=== PATIENT | male | born 1940 | race Caucasian/White ===

== ENCOUNTER 2017-09-15 10:52 | Inpatient (IN) | payer OTHER, MEDICARE ==
[2017-09-15] VITALS (8 sets, daily range): BP systolic 117–178; BP diastolic 63–76; PULSE 71–85; RESP 16–20; TEMP 97.1–98.8; O2SAT 96–98
[~2017-09-15] VITALS: Ht 170.2 cm; Wt 56.5 kg
[2017-09-15] MEDS ORDERED: SODIUM CHLORIDE 0.9% FLUSH 10 ML FLUSH IVF PRN (11:30)
--- NOTE | 2017-09-15 11:36 | PD ---
HPI Chief Complaint: Altered Mental Status Time Seen by Provider: 11:12 Travel History International Travel<30 days: No Contact w/Intl Traveler<30days: No Traveled to known affect area: No History of Present Illness HPI 76 year old male presents to the emergency department with his daughter at bedside. Patient has history of throat cancer, oncologist is Dr. Rehman. He started immunotherapy recently, last time was 1 week ago. According to daughter and patient, he has been having a right-sided headache behind the right eye for 2 days, waking up with a headache. He states he has no headache at this time. His daughter states that starting yesterday, he has been having difficulty getting his words out. He will know he wants to stay, but cannot say. The patient reports history of TIA, recent TAVR repair 2 months ago. Daughter states that he also been having syncopal episodes for approximately 7- 8 months and they contributed to his aortic valve. However, he still is having syncopal episodes since his repair. His daughter states his Lasix was upset was approximately 2 weeks ago. The patient denies any chest pain or shortness of breath. He does have a feeding tube. His daughter is also concerned that he could have pneumonia as he has been coughing. She states that he did eat tapioca pudding 2 days ago, which he is not supposed to do due to aspiration. No fevers. The patient denies any abdominal pain. No nausea, vomiting, diarrhea. The patient's speech is somewhat garbled due to history of throat cancer. According to patient and his daughter, this is his baseline. Patient states he has had these headaches before. He states that he is currently on Plavix and aspirin as well as Percocet as needed for pain, but rarely takes the Percocet. No exacerbating or alleviating factors. Moderate severity. PFSH Past Medical History Hx Anticoagulant Therapy: Yes (PLAVIX) Social History Alcohol Use: No Tobacco Use: No Substance Use: No Allergies-Medications (Allergen,Severity, Reaction): Coded Allergies: fludrocortisone (Verified Allergy, Severe, Swelling, 09/05/17) swollen tongue Reported Meds & Prescriptions Reported Meds & Active Scripts Active Reported Aspirin Adult Low Strength (Aspirin) 81 Mg Tabdr 81 Mg PO DAILY Plavix (Clopidogrel Bisulfate) 75 Mg Tab 75 Mg PO DAILY Review of Systems Except as stated in HPI: all other systems reviewed are Neg Physical Exam Narrative GENERAL: Well-nourished, well-developed male patient, afebrile. SKIN: Focused skin assessment warm/dry. HEAD: Normocephalic. Atraumatic. ENT: Mucosa pink and moist. No erythema or exudates. No uvular edema. No uvular , palatal, or tonsillar deviation. Airway patent. Nasal turbinates appear normal without nasal blood, purulent drainage or septal hematoma. Bilateral tympanic membranes are clear without erythema or perforation. EYES: No scleral icterus. No injection or drainage. PERRLA. EOM intact. NECK: Supple, trachea midline. No JVD or lymphadenopathy. CARDIOVASCULAR: Regular rate and rhythm without murmurs, gallops, or rubs. RESPIRATORY: Breath sounds equal bilaterally. No accessory muscle use. Lungs sounds are clear to auscultation GASTROINTESTINAL: Abdomen soft, non-tender, nondistended. Feeding tube noted. MUSCULOSKELETAL: No cyanosis, or edema. Bilateral upper and lower extremity strength 5/5. All extremities are neurovascularly intact. BACK: Nontender without obvious deformity. No CVA tenderness. NEUROLOGICAL: Awake and alert. Cranial nerves II through XII intact. Motor and sensory grossly within normal limits. Five out of 5 muscle strength in all muscle groups. Normal speech. Finger to nose is normal bilaterally, the patient did have trouble following the instructions. [id number] is normal bilaterally. Data Data Last Documented VS Vital Signs Date Time Temp Pulse Resp B/P (MAP) Pulse Ox O2 Delivery O2 Flow Rate FiO2 09/15/17 13:22 77 18 149/71 (97) 97 Room Air 09/15/17 10:56 98.8 Orders Orders Electrocardiogram (09/15/17 11:26) Prothrombin Time / Inr (Pt) (09/15/17 11:26) Act Partial Throm Time (Ptt) (09/15/17 11:26) Complete Blood Count With Diff (09/15/17 11:26) Comprehensive Metabolic Panel (09/15/17 11:26) Creatine Kinase (Cpk) (09/15/17 11:26) Troponin I (09/15/17 11:26) Urinalysis - C+S If Indicated (09/15/17 11:26) Ct Brain W/O Iv Contrast(Rout) (09/15/17 11:26) Chest, Single Ap (09/15/17 11:26) Ecg Monitoring (09/15/17 11:26) Iv Access Insert/Monitor (09/15/17 11:26) Oximetry (09/15/17 11:26) Sodium Chloride 0.9% Flush (Ns Flush) (09/15/17 11:30) Magnesium (Mg) (09/15/17 11:26) Admit Order (Ed Use Only) (09/15/17 13:34) Labs Laboratory Tests Test 09/15/17 11:30 09/15/17 11:45 White Blood Count 8.7 TH/MM3 Red Blood Count 4.32 MIL/MM3 Hemoglobin 13.0 GM/DL Hematocrit 38.2 % Mean Corpuscular Volume 88.4 FL Mean Corpuscular Hemoglobin 30.1 PG Mean Corpuscular Hemoglobin Concent 34.0 % Red Cell Distribution Width 15.8 % Platelet Count 194 TH/MM3 Mean Platelet Volume 7.4 FL Neutrophils (%) (Auto) 85.9 % Lymphocytes (%) (Auto) 7.2 % Monocytes (%) (Auto) 6.0 % Eosinophils (%) (Auto) 0.6 % Basophils (%) (Auto) 0.3 % Neutrophils # (Auto) 7.4 TH/MM3 Lymphocytes # (Auto) 0.6 TH/MM3 Monocytes # (Auto) 0.5 TH/MM3 Eosinophils # (Auto) 0.1 TH/MM3 Basophils # (Auto) 0.0 TH/MM3 CBC Comment DIFF FINAL Differential Comment Prothrombin Time 11.0 SEC Prothromb Time International Ratio 1.1 RATIO Activated Partial Thromboplast Time 28.2 SEC Blood Urea Nitrogen 11 MG/DL Creatinine 0.89 MG/DL Random Glucose 140 MG/DL Total Protein 7.0 GM/DL Albumin 3.6 GM/DL Calcium Level 8.5 MG/DL Magnesium Level 1.8 MG/DL Alkaline Phosphatase 57 U/L Aspartate Amino Transf (AST/SGOT) 15 U/L Alanine Aminotransferase (ALT/SGPT) 14 U/L Total Bilirubin 0.5 MG/DL Sodium Level 137 MEQ/L Potassium Level 3.8 MEQ/L Chloride Level 100 MEQ/L Carbon Dioxide Level 31.0 MEQ/L Anion Gap 6 MEQ/L Estimat Glomerular Filtration Rate 83 ML/MIN Total Creatine Kinase 44 U/L Troponin I 0.03 NG/ML Urine Color YELLOW Urine Turbidity CLEAR Urine pH 7.0 Urine Specific [place] 1.016 Urine Protein NEG mg/dL Urine Glucose (UA) NEG mg/dL Urine Ketones NEG mg/dL Urine Occult Blood NEG Urine Nitrite NEG Urine Bilirubin NEG Urine Urobilinogen 2.0 MG/DL Urine Leukocyte Esterase NEG Urine RBC LESS THAN 1 /hpf Urine WBC 1 /hpf Urine Mucus FEW /lpf Microscopic Urinalysis Comment CULT NOT INDICATED MDM Medical Decision Making Medical Screen Exam Complete: Yes Emergency Medical Condition: Yes Medical Record Reviewed: Yes Interpretation(s) Last Impressions Head CT 09/15/17 1126 Signed Impressions: Service Date/Time: Friday, September 15, 2017 11:59 - CONCLUSION: Suspected subdural hygroma on the right side of the frontal region. No acute process is identified. Toribio Enamorado MD Chest X-Ray 09/15/176 Signed Impressions: Service Date/Time: Friday, September 15, 2017 12:11 - CONCLUSION: Normal examination. Left subclavian bipolar pacer Toribio Enamorado MD Differential Diagnosis CVA versus TIA versus electrolyte abnormality versus dehydration versus pneumonia Narrative Course 76-year-old male presents to the emergency department for difficulty getting his words out since yesterday as well as a right-sided headache for 2 days. EKG , CBC, CMP, CK, troponin, magnesium, PTT, PT/INR, UA are ordered and pending. Chest x-ray and CT of the brain are ordered and pending. EKG shows v-paced rhythm, HR 78. CBC shows no acute abnormalities. CMP shows no acute abnormality. CK is 44. Troponin is 0.03. Magnesium is 1.8. Coags are unremarkable. UA is negative for acute infection. Chest x-ray shows no acute abnormality. CT of the brain shows suspected subdural hygroma on the right side of the frontal region. No acute process is identified. I spoke with Dr. Landeros regarding patient. He recommends admission and consult to him. Patient will be admitted for further evaluation. [facility] is paged for admission. Dr. Mcmillan accepted admission. Diagnosis Primary Impression: Subdural hygroma Additional Impressions: Headache Qualified Codes: R51 - Headache Difficulty with speech Admitting Information Admitting Physician Requests: Observation Vesna Walter Sep 15, 2017 11:36
[2017-09-15 11:53] LABS: AUTOMATED NEUTROPHIL # 7.4 TH/MM3 (1.8-7.7); BASOPHIL % 0.3 % (0.0-2.0); EOSINOPHIL # 0.1 TH/MM3 (0-0.4); EOSINOPHIL % 0.6 % (0.0-4.0); HEMATOCRIT 38.2 % (39.0-51.0); LYMPH % 7.2 % (9.0-44.0); LYMPHOCYTE # 0.6 TH/MM3 (1.0-4.8); MEAN CELL VOLUME 88.4 FL (80.0-100.0); MEAN CORPUSCULAR HEMOGLOBIN 30.1 PG (27.0-34.0); MEAN PLATELET VOLUME 7.4 FL (7.0-11.0); MONOCYTE # 0.5 TH/MM3 (0-0.9); NEUT % 85.9 % (16.0-70.0); PLATELET COUNT 194 TH/MM3 (150-450); RED BLOOD COUNT 4.32 MIL/MM3 (4.50-5.90); RED CELL DISTRIBUTION WIDTH 15.8 % (11.6-17.2); WHITE BLOOD COUNT 8.7 TH/MM3 (4.0-11.0)
[2017-09-15 12:08] LABS: INTERNATIONAL NORMALIZED RATIO 1.1 RATIO
[2017-09-15 12:11] LABS: ALBUMIN 3.6 GM/DL (3.4-5.0); ALT (GPT) 14 U/L (12-78); AST (GOT) 15 U/L (15-37); BLOOD UREA NITROGEN 11 MG/DL (7-18); CALCIUM 8.5 MG/DL (8.5-10.1); CHLORIDE 100 MEQ/L (98-107); CREATININE 0.89 MG/DL (0.60-1.30); GLOMERULAR FILTRATION RATE 83 ML/MIN (>89); GLUCOSE,RANDOM 140 MG/DL (74-106); MAGNESIUM 1.8 MG/DL (1.5-2.5); SODIUM (NA) 137 MEQ/L (136-145)
[2017-09-15 12:15] LABS: BILIRUBIN, URINE NEG (NEG); BLOOD, URINE NEG (NEG); GLUCOSE,URINE NEG (NEG); KETONE, URINE NEG (NEG); MUCUS URINE FEW /lpf (OCC); NITRITE,URINE NEG (NEG); URINE COLOR YELLOW (YELLW/STRAW); URINE LEUKOCYTE ESTERASE NEG (NEG)
[2017-09-15 12:15] LABS: ALKALINE PHOSPHATASE 57 U/L (45-117); TOTAL BILIRUBIN ADULT 0.5 MG/DL (0.2-1.0); TROPONIN I 0.03 NG/ML (0.02-0.05)
--- NOTE | 2017-09-15 12:20 | RADRPT ---
EXAM DATE/TIME: 09/15/2017 11:59 [facility] COMPARISON: No previous studies available for comparison. INDICATIONS : Confusion, headache behind right eye, right arm numbness. RADIATION DOSE: 36.84 CTDIvol (mGy) MEDICAL HISTORY : Throat cancer. SURGICAL HISTORY : None. ENCOUNTER: Initial ACUITY: 1 day PAIN SCALE: 4/10 LOCATION: Right frontal TECHNIQUE: Multiple contiguous axial images were obtained of the head. Using automated exposure control and adj ustment of the mA and/or kV according to patient size, radiation dose was kept as low as reasonably a chievable to obtain optimal diagnostic quality images. DICOM format image data is available electro nically for review and comparison. FINDINGS: CEREBRUM: The ventricles are normal for age. No evidence of midline shift, mass lesion, hemorrhage or acute in farction. There is some increased fluid along the right frontal region and the extra-axial space with some areas of higher density likely a small subdural hygroma. No acute hemorrhage or mass is identif ied. POSTERIOR FOSSA: The cerebellum and brainstem are intact. The 4th ventricle is midline. The cerebellopontine angle i s unremarkable. EXTRACRANIAL: The visualized portion of the orbits is intact. SKULL: The calvaria is intact. No evidence of skull fracture. CONCLUSION: Suspected subdural hygroma on the right side of the frontal region. No acute process is identified. Toribio Enamorado MD on September 15, 2017 at 12:18 Board Certified Radiologist. This report was verified electronically.
--- NOTE | 2017-09-15 12:36 | RADRPT ---
EXAM DATE/TIME: 09/15/2017 12:11 [facility] COMPARISON: No previous studies available for comparison. INDICATIONS : Headaches, Shortness of breath, Right arm numbness. Chest pain. MEDICAL HISTORY : Throat cancer SURGICAL HISTORY : Pacemaker. ENCOUNTER: Initial ACUITY: 1 day PAIN SCORE: 10/10 LOCATION: Bilateral chest FINDINGS: A single view of the chest demonstrates the lungs to be symmetrically aerated without evidence of mas s, infiltrate or effusion. Left subclavian bipolar pacer The cardiomediastinal contours are unremark able. Osseous structures are intact. CONCLUSION: Normal examination. Left subclavian bipolar pacer Toribio Enamorado MD on September 15, 2017 at 12:34 Board Certified Radiologist. This report was verified electronically.
[2017-09-15] MEDS ORDERED: ASPI81TA16 PO (12:42)
[2017-09-15] MEDS ORDERED: PLAV75TA29 PO (12:42)
[2017-09-15] MEDS ORDERED: ONDANSETRON HCL 4 MG/2 ML VIAL IVP PRN (14:15)
[2017-09-15] MEDS ORDERED: NALOXONE HCL 0.4 MG/ML AMP IV PUSH PRN (14:15)
[2017-09-15] MEDS ORDERED: MAGNESIUM HYDROXIDE SUSP 30 ML CUP PO PRN (14:15)
[2017-09-15] MEDS ORDERED: ACETAMINOPHEN 325 MG TAB PO PRN (14:15)
[2017-09-15] MEDS ORDERED: SODIUM CHLORIDE 0.9% FLUSH 10 ML FLUSH IV FLUSH PRN (14:15)
[2017-09-15] MEDS ORDERED: BISACODYL 10 MG SUPP RECTAL PRN (14:15)
[2017-09-15] MEDS ORDERED: SENNOSIDES 8.6 MG TAB PO PRN (14:15)
--- NOTE | 2017-09-15 14:49 | HHI.HP ---
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 Rehman, aortic stenosis status post aortic valve replacement done by TAVR, status post pacemaker placement, coronary disease status post stent placement, status post PEG placement who presented with altered mental status. Patient's daughters and future son-in-law are at the bedside during the interview. Patient had no concerns. He denied being confused. He is AAO 4. Per patient's daughter yesterday patient developed a headache that resolved with Percocet. She stated that he later developed some confusion where she felt like he was trying to find his words. Denies any focal neurological deficits. Denies any blurry vision or headaches at the moment. Due to patient' s confusion daughter brought patient into the ER. During my interview with the patient he was not confused. I asked daughter if she he was still confused she stated that his confusion has resolved since being in the emergency department. Patient does speak with a little slurred speech because of head and neck cancer but this is his baseline. Patient also has a PEG and he was put on Jevity but per patient's daughter he is allergic to soy so she pures food and feed him through the PEG. Patient is on aspirin and Plavix. All other review of system reviewed and negative. 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 Oliva- successful - has had a total of 2 TAVR (same surgery). Status post pacemaker. Status post PCI RCA and angioplasty 2 vessels. Cancer in 2000 Appendectomy Cholecystectomy Left neck dissection [facility]- - 2000 did bx of base of tongue and left tonsil Vasectomy Reported Medications Aspirin Adult Low Strength (Aspirin) 81 Mg Tabdr 81 Mg PO DAILY Plavix (Clopidogrel Bisulfate) 75 Mg Tab 75 Mg PO DAILY Allergies: Coded Allergies: fludrocortisone (Verified Allergy, Severe, Swelling, 09/05/17) swollen tongue Active Ordered Medications Current Medications Sodium Chloride (NS Flush) 2 ml UNSCH PRN IVF FLUSH AFTER USING IV ACCESS; Start 09/15/17 at 11:30; Stop 09/15/17 at 14:34; Status DC Sodium Chloride 1,000 ml @ 75 mls/hr [id number] IV ; Start 09/15/17 at 14:03 Sodium Chloride (NS Flush) 2 ml UNSCH PRN IV FLUSH FLUSH AFTER USING IV ACCESS ; Start 09/15/17 at 14:15 Sodium Chloride (NS Flush) 2 ml BID IV FLUSH ; Start 09/15/17 at 21:00 Acetaminophen (Tylenol) 650 mg Q4H PRN PO TEMP > 100.4; Start 09/15/17 at 14:15 Ondansetron HCl (Zofran Inj) 4 mg Q6H PRN IVP NAUSEA OR VOMITING; Start at 14:15 Naloxone HCl (Narcan Inj) 0.4 mg UNSCH PRN IV PUSH SEE LABEL COMMENTS; Start at 14:15 Magnesium Hydroxide (Milk Of Magnferdinand Liq) 30 ml Q12H PRN PO Mild constipation ; Start 09/15/17 at 14:15 Sennosides (Senokot) 17.2 mg Q12H PRN PO Moderate constipation; Start 09/15/17 at 14:15 Bisacodyl (Dulcolax Supp) 10 mg DAILY PRN RECTAL SEVERE CONSITIPATION; Start at 14:15 Family History Reviewed past family history noncontributory. Social History Mr. Gonzalez is . Mr. Gonzalez quit smoking 9 years ago but had smoked 1.5 packs/day. Denies any alcohol or illicit drug use. Physical Exam Vital Signs Vital Signs Date Time Temp Pulse Resp B/P (MAP) Pulse Ox O2 Delivery O2 Flow Rate FiO2 09/15/17 14:40 97.1 73 18 136/63 (87) 98 09/15/17 13:22 77 18 149/71 (97) 97 Room Air 09/15/17 13:22 97 18 97 Room Air 09/15/17 11:28 80 20 146/65 (92) 96 Room Air 09/15/17 10:56 98.8 85 16 159/67 (97) 98 Physical Exam GENERAL: This is a cachectic male in no acute distress. SKIN: No rashes, ecchymoses or lesions. Cool and dry. HEAD: Atraumatic. Normocephalic. No temporal or scalp tenderness. EYES: Pupils equal round and reactive. Extraocular motions intact. No scleral icterus. No injection or drainage. ENT: Nose without bleeding, purulent drainage or septal hematoma. Throat without erythema, tonsillar hypertrophy or exudate. Uvula midline. Airway patent. Tongue is mildly swollen. NECK: Trachea midline. No JVD or lymphadenopathy. Supple, nontender, no meningeal signs. CARDIOVASCULAR: Regular rate and rhythm without murmurs, gallops, or rubs. Pacemaker intact and palpable RESPIRATORY: Clear to auscultation. Breath sounds equal bilaterally. No wheezes , rales, or rhonchi. GASTROINTESTINAL: Abdomen soft, non-tender, nondistended. No hepato-splenomegaly , or palpable masses. No guarding. PEG is in place. MUSCULOSKELETAL: Extremities without clubbing, cyanosis, or edema. No joint tenderness, effusion, or edema noted. No calf tenderness. Negative Homans sign bilaterally. NEUROLOGICAL: AAO X3. Answers questions appropriately. Cranial nerves II through XII intact. Motor and sensory grossly within normal limits. Five out of 5 muscle strength in all muscle groups. Patient does have a slight slurred speech secondary to head and neck cancer. This is his baseline. Laboratory Laboratory Tests Test 09/15/17 11:30 09/15/17 11:45 White Blood Count 8.7 Red Blood Count 4.32 Hemoglobin 13.0 Hematocrit 38.2 Mean Corpuscular Volume 88.4 Mean Corpuscular Hemoglobin 30.1 Mean Corpuscular Hemoglobin Concent 34.0 Red Cell Distribution Width 15.8 Platelet Count 194 Mean Platelet Volume 7.4 Neutrophils (%) (Auto) 85.9 Lymphocytes (%) (Auto) 7.2 Monocytes (%) (Auto) 6.0 Eosinophils (%) (Auto) 0.6 Basophils (%) (Auto) 0.3 Neutrophils # (Auto) 7.4 Lymphocytes # (Auto) 0.6 Monocytes # (Auto) 0.5 Eosinophils # (Auto) 0.1 Basophils # (Auto) 0.0 CBC Comment DIFF FINAL Differential Comment Prothrombin Time 11.0 Prothromb Time International Ratio 1.1 Activated Partial Thromboplast Time 28.2 Blood Urea Nitrogen 11 Creatinine 0.89 Random Glucose 140 Total Protein 7.0 Albumin 3.6 Calcium Level 8.5 Magnesium Level 1.8 Alkaline Phosphatase 57 Aspartate Amino Transf (AST/SGOT) 15 Alanine Aminotransferase (ALT/SGPT) 14 Total Bilirubin 0.5 Sodium Level 137 Potassium Level 3.8 Chloride Level 100 Carbon Dioxide Level 31.0 Anion Gap 6 Estimat Glomerular Filtration Rate 83 Total Creatine Kinase 44 Troponin I 0.03 Urine Color YELLOW Urine Turbidity CLEAR Urine pH 7.0 Urine Specific [place] 1.016 Urine Protein NEG Urine Glucose (UA) NEG Urine Ketones NEG Urine Occult Blood NEG Urine Nitrite NEG Urine Bilirubin NEG Urine Urobilinogen 2.0 Urine Leukocyte Esterase NEG Urine RBC LESS THAN 1 Urine WBC 1 Urine Mucus FEW Microscopic Urinalysis Comment CULT NOT INDICATED Result Diagram: 09/15/17 1130 09/15/17 1130 Imaging Last Impressions Head CT 09/15/17 1126 Signed Impressions: Service Date/Time: Friday, September 15, 2017 11:59 - CONCLUSION: Suspected subdural hygroma on the right side of the frontal region. No acute process is identified. Toribio Enamorado MD Chest X-Ray 09/15/17 1126 Signed Impressions: Service Date/Time: Friday, September 15, 2017 12:11 - CONCLUSION: Normal examination. Left subclavian bipolar pacer MD dAamaris Bondi VTE Risk Assessment Caprini VTE Risk Assessment: Mod/High Risk (score >= 2) Caprini Risk Assessment Model Point Value = 1 Point Value = 2 Point Value = 3 Point Value = 5 Age 41-60 Minor surgery BMI > 25 kg/m2 Swollen legs Varicose veins or History of unexplained or recurrent spontaneous Oral contraceptives or hormone replacement Sepsis (< 1 month) Serious lung disease, including pneumonia (< 1 month) Abnormal pulmonary function Acute myocardial infarction Congestive heart failure (< 1 month) History of inflammatory bowel disease Medical patient at bed rest Age 61-74 Arthroscopic surgery Major open surgery (> 45 min) Laparoscopic surgery (> 45 min) Malignancy Confined to bed (> 72 hours) Immobilizing plaster cast Central venous access Age >= 75 History of VTE Family history of VTE Factor V Leiden Prothrombin [id number] Lupus anticoagulant Anticardiolipin antibodies Elevated serum homocysteine Heparin-induced thrombocytopenia Other congenital or acquired thrombophilia Stroke (< 1 month) Elective arthroplasty Hip, pelvis, or leg fracture Acute spinal cord injury (< 1 month) Prophylaxis Regimen Total Risk Factor Score Risk Level Prophylaxis Regimen 0-1 Low Early ambulation 2 Moderate Order ONE of the following: *Sequential Compression Device (SCD) *Heparin 5000 units SQ BID 3-4 Higher Order ONE of the following medications: *Heparin 5000 units SQ TID *Enoxaparin/Lovenox 40 mg SQ daily (WT < 150 kg, CrCl > 30 mL/min) *Enoxaparin/Lovenox 30 mg SQ daily (WT < 150 kg, CrCl > 10-29 mL/min) *Enoxaparin/Lovenox 30 mg SQ BID (WT < 150 kg, CrCl > 30 mL/min) AND/OR *Sequential Compression Device (SCD) 5 or more Highest Order ONE of the following medications: *Heparin 5000 units SQ TID (Preferred with Epidurals) *Enoxaparin/Lovenox 40 mg SQ daily (WT < 150 kg, CrCl > 30 mL/min) *Enoxaparin/Lovenox 30 mg SQ daily (WT < 150 kg, CrCl > 10-29 mL/min) *Enoxaparin/Lovenox 30 mg SQ BID (WT < 150 kg, CrCl > 30 mL/min) AND *Sequential Compression Device (SCD) Assessment and Plan Assessment and Plan 76-year-old male with extensive past medical history who presented altered mental status Altered mental status -CT scan shows subdural hygroma of the right sided frontal region. No baseline for comparison. Labs reviewed relatively normal. -ED provider spoke with Dr. Landeros. She stated that Dr. Cheng stated to admit to medical team and consult him. -Unsure if subdural hygromas due to history of subdural hematoma to be determined by neurosurgeon. -Since there is no active bleeding will restart home medication. -At the moment patient is asymptomatic. Brief altered mental status moment may be secondary to Percocet use. -We will monitor on telemetry, carotid ultrasounds, MRI of the brain if able to obtain based on model of patient's pacemaker, echo, and EEG. -Neuro checks every 4 hours. Headache -Resolved after giving a dose of Percocet yesterday. -See treatment as above. Coronary artery disease status post stent placement, pacemaker placement, aortic stenosis s/p TAVR -Continue with home medication. Head and neck cancer with metastases to lymph nodes and possible liver -Being managed by Dr. Rehman. Patient currently receiving chemo. -Follow-up with Dr. Rehman as outpatient as directed. History of syncopal episodes -This has been worked up numerous times in the past. Thought to be blamed for hypotensive episode. At the moment patient has mild hypertension. Continue monitor will adjust medication as needed. s/p PEG -patient is cachetic/malnourished. Daughter is feeding patient with a pured diet. Will consult dietitian. DVT prophylaxis -SCDs. Code Status Full code Discussed Condition With patient, his daughter and future son-in-law. Siena Mcmillan MD Sep 15, 2017 14:49
[2017-09-15] MEDS: SODIUM CHLOR 0.45% 1000 ML INJ 1,000 ML IV SCH ×2 (16:09→22:48)
--- NOTE | 2017-09-15 16:52 | PD.CONS ---
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 He is a patient of Dr. Rehman. He also has a history of aortic stenosis, AVR via TAVR, permanent pacemaker he states about 7 months ago, heart disease with stent, PEG placement. He apparently came in with altered mental status. He seems to be back to baseline at this time. He apparently had a headache during that time and resolved with some Percocet. He was having issues trying to obtain words. 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 Currently seems to be back to baseline. Currently, he is on aspirin and Plavix. CT iof the brain showed subdural hygromas,. Neurosurgical consultation was requested Review of Systems Constitutional: DENIES: Diaphoretic episodes, Fatigue, Fever, Weight gain, Weight loss, Chills, Dizziness, Change in appetite, Night Sweats Endocrine: DENIES: Heat/cold intolerance, Polydipsia, Polyuria, Polyphagia Eyes: DENIES: Blurred vision, Diplopia, Eye inflammation, Eye pain, Vision loss , Photosensitivity, Double Vision Ears, nose, mouth, throat: DENIES: Tinnitus, Hearing loss, Vertigo, Nasal discharge, Oral lesions, Throat pain, Hoarseness, Ear Pain, Running Nose, Epistaxis, Sinus Pain, Toothache, Odynophagia Respiratory: DENIES: Apneas, Cough, Snoring, Wheezing, Hemoptysis, Sputum production, Shortness of breath Cardiovascular: DENIES: Chest pain, Palpitations, Syncope, Dyspnea on Exertion , PND, Lower Extremity Edema, Orthopnea, Claudication Gastrointestinal: DENIES: Abdominal pain, Black stools, Bloody stools, Constipation, Diarrhea, Nausea, Vomiting, Difficulty Swallowing, Anorexia Genitourinary: DENIES: Sexual dysfunction, Urinary frequency, Urinary incontinence, Urgency, Hematuria, Dysuria, Nocturia, Penile Discharge, Testicular Pain, Testicular Swelling Musculoskeletal: DENIES: Joint pain, Muscle aches, Stiffness, Joint Swelling, Back pain, Neck pain Integumentary: DENIES: Abnormal pigmentation, Nail changes, Pruritus, Rash Hematologic/lymphatic: DENIES: Bruising, Lymphadenopathy Immunologic/allergic: DENIES: Eczema, Urticaria Neurologic: DENIES: Abnormal gait, Headache, Localized weakness, Paresthesias, Seizures, Speech Problems, Tremor, Poor Balance Psychiatric: COMPLAINS OF: Confusion, DENIES: Anxiety, Mood changes, Depression , Hallucinations, Agitation, Suicidal Ideation, Homicidal Ideation, Delusions Past Family Social History Allergies: Coded Allergies: fludrocortisone (Verified Allergy, Severe, Swelling, 09/05/17) swollen tongue Past Medical History History of multiple syncopal episodes Chronic Obstructive Pulmonary Disease 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 Oliva- successful - has had a total of 2 TAVR ( same surgery). Status post pacemaker. Status post PCI RCA and angioplasty 2 vessels. Cancer in 2000 Appendectomy Cholecystectomy Left neck dissection [facility]- - 2000 did bx of base of tongue and left tonsil Vasectomy Reported Medications Aspirin Adult Low Strength (Aspirin) 81 Mg Tabdr 81 Mg PO DAILY Plavix (Clopidogrel Bisulfate) 75 Mg Tab 75 Mg PO DAILY Active Ordered Medications Sodium Chloride (NS Flush) 2 ml UNSCH PRN IVF FLUSH AFTER USING IV ACCESS; Start 09/15/17 at 11:30; Stop 09/15/17 at 14:34; Status DC Sodium Chloride 1,000 ml @ 75 mls/hr [id number] IV ; Start 09/15/17 at 14:03 Sodium Chloride (NS Flush) 2 ml UNSCH PRN IV FLUSH FLUSH AFTER USING IV ACCESS ; Start 09/15/17 at 14:15 Sodium Chloride (NS Flush) 2 ml BID IV FLUSH ; Start 09/15/17 at 21:00 Acetaminophen (Tylenol) 650 mg Q4H PRN PO TEMP > 100.4; Start 09/15/17 at 14:15 Ondansetron HCl (Zofran Inj) 4 mg Q6H PRN IVP NAUSEA OR VOMITING; Start at 14:15 Naloxone HCl (Narcan Inj) 0.4 mg UNSCH PRN IV PUSH SEE LABEL COMMENTS; Start at 14:15 Magnesium Hydroxide (Milk Of Magnesia Liq) 30 ml Q12H PRN PO Mild constipation ; Start 09/15/17 at 14:15 Sennosides (Senokot) 17.2 mg Q12H PRN PO Moderate constipation; Start 09/15/17 at 14:15 Bisacodyl (Dulcolax Supp) 10 mg DAILY PRN RECTAL SEVERE CONSITIPATION; Start at 14:15 Family History Reviewed past family history noncontributory. Social History He is . Mr. Gonzalez quit smoking 9 years ago but had smoked 1.5 packs/ day. Denies any alcohol or illicit drug use. Physical Exam Vital Signs Vital Signs Date Time Temp Pulse Resp B/P (MAP) Pulse Ox O2 Delivery O2 Flow Rate FiO2 09/15/17 15:58 98.2 71 18 174/72 (106) 96 09/15/17 14:40 97.1 73 18 136/63 (87) 98 09/15/17 13:22 77 18 149/71 (97) 97 Room Air 09/15/17 13:22 97 18 97 Room Air 09/15/17 11:28 80 20 146/65 (92) 96 Room Air 09/15/17 10:56 98.8 85 16 159/67 (97) 98 Physical Exam The patient is alert, awake and oriented to time, place and person. Speech is fluent. Higher cognitive functions are normal. Slurred speech due to his head and neck cancer Cranial nerve examination demonstrates the pupils to be equal, round, and reactive to light. Extra-ocular movements are intact. Facial motor and sensory function are normal and symmetrical. Gross hearing is intact, bilaterally. The uvula is midline and elevates symmetrically with the soft palate. Sternocleidomastoid and trapezius muscles have normal and symmetrical strength. Other cranial nerves are intact. Neck is soft and supple. Cervical spine has a full range of motion in anterior flexion, extension, lateral bending, and rotation without pain. There is no tenderness to palpation to the spinous processes or paraspinal muscles. Muscle testing reveals normal bulk and tone overall without rigidity, spasticity , fasciculations, or atrophy. 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 In the lower extremities, strength is 5/5 in both iliopsoas, quadriceps, hamstrings, plantar flexion, dorsiflexion, and extensor hallicus longus. Sensory examination is intact to light touch and sharp/dull discrimination in both the upper and lower extremities, symmetrically. Deep tendon reflexes are 1+ and symmetrical in the biceps, triceps, and brachioradialis, bilaterally, in the upper extremities. In the lower extremities , the patellar and Achilles are 1+, bilaterally. There is a bilateral plantar flexion response. Hoffmanns sign is negative. There is no clonus or other abnormal reflexes noted. Cerebellar examination is intact to [id number] test, rapid rhythmic alternating motion. CARDIOVASCULAR: Regular rate and rhythm without murmurs, gallops, or rubs. Pacemaker intact and palpable RESPIRATORY: Clear to auscultation. Breath sounds equal bilaterally. No wheezes , rales, or rhonchi. GASTROINTESTINAL: Abdomen soft, non-tender, nondistended. No hepato-splenomegaly , or palpable masses. No guarding. PEG is in place. MUSCULOSKELETAL: Extremities without clubbing, cyanosis, or edema. No joint tenderness, effusion, or edema noted. No calf tenderness. Negative Homans sign bilaterally. Laboratory Laboratory Tests Test 09/15/17 11:30 09/15/17 11:45 White Blood Count 8.7 Red Blood Count 4.32 Hemoglobin 13.0 Hematocrit 38.2 Mean Corpuscular Volume 88.4 Mean Corpuscular Hemoglobin 30.1 Mean Corpuscular Hemoglobin Concent 34.0 Red Cell Distribution Width 15.8 Platelet Count 194 Mean Platelet Volume 7.4 Neutrophils (%) (Auto) 85.9 Lymphocytes (%) (Auto) 7.2 Monocytes (%) (Auto) 6.0 Eosinophils (%) (Auto) 0.6 Basophils (%) (Auto) 0.3 Neutrophils # (Auto) 7.4 Lymphocytes # (Auto) 0.6 Monocytes # (Auto) 0.5 Eosinophils # (Auto) 0.1 Basophils # (Auto) 0.0 CBC Comment DIFF FINAL Differential Comment Prothrombin Time 11.0 Prothromb Time International Ratio 1.1 Activated Partial Thromboplast Time 28.2 Blood Urea Nitrogen 11 Creatinine 0.89 Random Glucose 140 Total Protein 7.0 Albumin 3.6 Calcium Level 8.5 Magnesium Level 1.8 Alkaline Phosphatase 57 Aspartate Amino Transf (AST/SGOT) 15 Alanine Aminotransferase (ALT/SGPT) 14 Total Bilirubin 0.5 Sodium Level 137 Potassium Level 3.8 Chloride Level 100 Carbon Dioxide Level 31.0 Anion Gap 6 Estimat Glomerular Filtration Rate 83 Total Creatine Kinase 44 Troponin I 0.03 Urine Color YELLOW Urine Turbidity CLEAR Urine pH 7.0 Urine Specific [place] 1.016 Urine Protein NEG Urine Glucose (UA) NEG Urine Ketones NEG Urine Occult Blood NEG Urine Nitrite NEG Urine Bilirubin NEG Urine Urobilinogen 2.0 Urine Leukocyte Esterase NEG Urine RBC LESS THAN 1 Urine WBC 1 Urine Mucus FEW Microscopic Urinalysis Comment CULT NOT INDICATED Result Diagram: 09/15/17 1130 09/15/17 1130 Imaging Last [address] 09/15/17 112 Signed Impressions: Service Date/Time: Friday, September 15, 2017 11:59 - CONCLUSION: Suspected subdural hygroma on the right side of the frontal region. No acute process is identified. Toribio Enamorado MD Chest X-Ray 09/15/171125 Signed Impressions: Service Date/Time: Friday, September 15, 2017 12:11 - CONCLUSION: Normal examination. Left subclavian bipolar pacer Toribio Enamorado MD Assessment and Plan Assessment and Plan Caprini VTE Risk Assessment: Mod/High Risk (score >= 2) Caprini Risk Assessment Model Point Value = 1 Point Value = 2 Point Value = 3 Point Value = 5 Age 41-60 Minor surgery BMI > 25 kg/m2 Swollen legs Varicose veins or History of unexplained or recurrent spontaneous Oral contraceptives or hormone replacement Sepsis (< 1 month) Serious lung disease, including pneumonia (< 1 month) Abnormal pulmonary function Acute myocardial infarction Congestive heart failure (< 1 month) History of inflammatory bowel disease Medical patient at bed rest Age 61-74 Arthroscopic surgery Major open surgery (> 45 min) Laparoscopic surgery (> 45 min) Malignancy Confined to bed (> 72 hours) Immobilizing plaster cast Central venous access Age >= 75 History of VTE Family history of VTE Factor V Leiden Prothrombin [id number] Lupus anticoagulant Anticardiolipin antibodies Elevated serum homocysteine Heparin-induced thrombocytopenia Other congenital or acquired thrombophilia Stroke (< 1 month) Elective arthroplasty Hip, pelvis, or leg fracture Acute spinal cord injury (< 1 month) Prophylaxis Regimen Total Risk Factor Score Risk Level Prophylaxis Regimen 0-1 Low Early ambulation 2 Moderate Order ONE of the following: *Sequential Compression Device (SCD) *Heparin 5000 units SQ BID 3-4 Higher Order ONE of the following medications: *Heparin 5000 units SQ TID *Enoxaparin/Lovenox 40 mg SQ daily (WT < 150 kg, CrCl > 30 mL/min) *Enoxaparin/Lovenox 30 mg SQ daily (WT < 150 kg, CrCl > 10-29 mL/min) *Enoxaparin/Lovenox 30 mg SQ BID (WT < 150 kg, CrCl > 30 mL/min) AND/OR *Sequential Compression Device (SCD) 5 or more Highest Order ONE of the following medications: *Heparin 5000 units SQ TID (Preferred with Epidurals) *Enoxaparin/Lovenox 40 mg SQ daily (WT < 150 kg, CrCl > 30 mL/min) *Enoxaparin/Lovenox 30 mg SQ daily (WT < 150 kg, CrCl > 10-29 mL/min) *Enoxaparin/Lovenox 30 mg SQ BID (WT < 150 kg, CrCl > 30 mL/min) AND *Sequential Compression Device (SCD) Attending Statement 76-year-old male with extensive past medical history who presented altered mental status I personally reviewed his radiological studies Head CT 09/15/17 1126 Signed Impressions: Service Date/Time: Friday, September 15, 2017 11:59 - CONCLUSION: Suspected subdural hygroma on the right side of the frontal region. No acute process is identified. Toribio Enamorado MD Chest X-Ray 09/15/17 1126 Signed Impressions: Service Date/Time: Friday, September 15, 2017 12:11 - CONCLUSION: Normal examination. Left subclavian bipolar pacer MD Merry Bond VTE Risk Assessment: Mod/High Risk (score >= 2) Caprini Risk Assessment Model Point Value = 1 Point Value = 2 Point Value = 3 Point Value = 5 Age 41-60 Minor surgery BMI > 25 kg/m2 Swollen legs Varicose veins or History of unexplained or recurrent spontaneous Oral contraceptives or hormone replacement Sepsis (< 1 month) Serious lung disease, including pneumonia (< 1 month) Abnormal pulmonary function Acute myocardial infarction Congestive heart failure (< 1 month) History of inflammatory bowel disease Medical patient at bed rest Age 61-74 Arthroscopic surgery Major open surgery (> 45 min) Laparoscopic surgery (> 45 min) Malignancy Confined to bed (> 72 hours) Immobilizing plaster cast Central venous access Age >= 75 History of VTE Family history of VTE Factor V Leiden Prothrombin [id number] Lupus anticoagulant Anticardiolipin antibodies Elevated serum homocysteine Heparin-induced thrombocytopenia Other congenital or acquired thrombophilia Stroke (< 1 month) Elective arthroplasty Hip, pelvis, or leg fracture Acute spinal cord injury (< 1 month) Prophylaxis Regimen Total Risk Factor Score Risk Level Prophylaxis Regimen 0-1 Low Early ambulation 2 Moderate Order ONE of the following: *Sequential Compression Device (SCD) *Heparin 5000 units SQ BID 3-4 Higher Order ONE of the following medications: *Heparin 5000 units SQ TID *Enoxaparin/Lovenox 40 mg SQ daily (WT < 150 kg, CrCl > 30 mL/min) *Enoxaparin/Lovenox 30 mg SQ daily (WT < 150 kg, CrCl > 10-29 mL/min) *Enoxaparin/Lovenox 30 mg SQ BID (WT < 150 kg, CrCl > 30 mL/min) AND/OR *Sequential Compression Device (SCD) 5 or more Highest Order ONE of the following medications: *Heparin 5000 units SQ TID (Preferred with Epidurals) *Enoxaparin/Lovenox 40 mg SQ daily (WT < 150 kg, CrCl > 30 mL/min) *Enoxaparin/Lovenox 30 mg SQ daily (WT < 150 kg, CrCl > 10-29 mL/min) *Enoxaparin/Lovenox 30 mg SQ BID (WT < 150 kg, CrCl > 30 mL/min) AND *Sequential Compression Device (SCD) Frontal hygroma neuro checks in a serial fashion. Non surgical management Consul;t neurology for altered mental status/encephalopathy. this is not related to the hygroma.. Change in mental status with word finding difficulties , may have been a transient ischemic attack. I have ordered an MRI of the brain to ryule out infarction physical therapy evaluation recommend electroencephalogram, echocardiogram, and MRI with and without contrast, given his cancer history if his pacemaker is MRI compatible Pulmonary. aggressive pulmonary toilette, nasotracheal suction, and breathing treatments with nebulizers. Head and neck cancer with metastases to lymph nodes and possible liver. Regarding the findings on his carotid ultrasound of the lymph nodes, I would defer that to oncology, managed by Dr. Rehman. currently receiving chemo. I have ordered a follow up CT/MRI of his neck. Daily Speech therapy and OT Headache. Resolved after giving a dose of Percocet Coronary artery disease status post stent placement, pacemaker placement, aortic stenosis s/p TAVR -Continue with home medication. History of syncopal episodes -This has been worked up numerous times in the past. Thought to be related to hypotensive episode. At the moment patient has mild hypertension. Continue monitor, adjust medication as needed. s/p PEG -patient is cachetic/malnouished. Daughter is feeding patient with a pured diet. Consult dietitian. Renal. monitor closely urine output, BUN and creatinine Endocrine.Monitor serial Acu checks and SSI as needed in detail ID monitor for signs of infection Protonix for stress ulcer prophylaxis Rasheed hose and SCD's for DVT prophylaxis Further recommendations will be provided depending on the patient's clinical evaluation and follow up studies Discussed with family at bedside Gilbert Landeros MD Sep 15, 2017 16:52
[2017-09-15] MEDS ORDERED: ENALAPRILAT 1.25 MG/ML VIAL IV PUSH PRN (17:45)
--- NOTE | 2017-09-15 20:42 | RADRPT ---
EXAM DATE/TIME: 09/15/2017 19:11 [place] COMPARISON: CT BRAIN W/O CONTRAST, September 15, 2017, 11:59. INDICATIONS : Transient ischemic attack. MEDICAL HISTORY : Anticoagulant therapy, plavix. SURGICAL HISTORY : None. ENCOUNTER: Initial ACUITY: 3 days PAIN SCORE: 0/10 LOCATION: Bilateral neck PEAK SYSTOLIC VELOCITIES (cm/sec): ICA/CCA RATIO: Right: 1.2 Left: 0.9 ICA: Right: 91 Left: 66 CCA: Right: 77 Left: 71 ECA: Right: 88 Left: 57 VERTEBRAL: Right: 48 antegrade Left: 47 antegrade Elevated flow velocities and ICA/CCA ratios have been found to correlate with increased degrees of vessel stenosis, calculated as percentage of diameter relative to a normal segment of distal ICA/CCA FINDINGS: RIGHT CAROTID: No significant stenosis is visualized. The waveforms are within normal limits. LEFT CAROTID: No significant stenosis is visualized. The waveforms are within normal limits. VERTEBRAL ARTERIES: Antegrade flow is seen in both vertebral arteries. MISCELLANEOUS: None. CONCLUSION: 1. No evidence for hemodynamically significant stenosis. 2. In the right neck a 2.2 x 1 x 1.7 cm solid hypoechoic mass is present with blood flow anterior to the carotid vasculature. There is also a 3.5 x 2.1 x 4 cm mass in the right neck anterior to the bifu rcation. Additional abnormal masses are seen felt to represent abnormal lymph nodes including right s ubmandibular region up to 1.2 cm. In the left neck a 2.1 cm abnormal node is seen. Neoplastic process es such as metastatic disease or lymphoma should be entertained. Dedicated cervical imaging with CT n charly with contrast suggested. Arik Cadena MD on September 15, 2017 at 20:39 Board Certified Radiologist. This report was verified electronically.
[2017-09-15] MEDS: SODIUM CHLORIDE 0.9% FLUSH 10 ML FLUSH IV FLUSH SCH (21:00)
[2017-09-16] VITALS (9 sets, daily range): BP systolic 117–161; BP diastolic 62–78; PULSE 66–88; RESP 15–18; TEMP 96–97.7; O2SAT 95–99
[2017-09-16] MEDS: SODIUM CHLOR 0.45% 1000 ML INJ 1,000 ML IV SCH ×2 (03:23→16:43)
[2017-09-16] MEDS: SODIUM CHLORIDE 0.9% FLUSH 10 ML FLUSH IV FLUSH SCH ×2 (09:00→21:00)
[2017-09-16] MEDS: CLOPIDOGREL 75 MG TAB PO SCH (09:00)
[2017-09-16 09:19] LABS: HEMATOCRIT 39.5 % (39.0-51.0); HEMOGLOBIN 13.5 GM/DL (13.0-17.0); MEAN CELL VOLUME 88.5 FL (80.0-100.0); MEAN CORPUSCULAR HEMOGLOBIN 30.3 PG (27.0-34.0); MEAN CORPUSCULAR HGB CONC 34.3 % (32.0-36.0); MEAN PLATELET VOLUME 7.6 FL (7.0-11.0); PLATELET COUNT 188 TH/MM3 (150-450); RED BLOOD COUNT 4.46 MIL/MM3 (4.50-5.90); RED CELL DISTRIBUTION WIDTH 15.8 % (11.6-17.2); WHITE BLOOD COUNT 6.8 TH/MM3 (4.0-11.0)
[2017-09-16] MEDS: ASPIRIN EC 81 MG TABEC PO SCH (09:22)
[2017-09-16 10:31] LABS: BICARBONATE 28.1 MEQ/L (21.0-32.0); CALCIUM 8.7 MG/DL (8.5-10.1); CREATININE 0.63 MG/DL (0.60-1.30)
--- NOTE | 2017-09-16 10:53 | MB ---
cc: Shonda Montes MD DATE OF CONSULT: REASON FOR CONSULTATION: Change in mental status. The patient is a 76-year-old man with a history of squamous cell carcinoma of the head and neck since 2000 with mets to lymph nodes and possibly liver. He is a patient of Dr. Rehman. He also has a history of aortic stenosis, AVR via TAVR, permanent pacemaker he states about 7 months ago, heart disease with stent, PEG placement. He apparently came in with altered mental status. He seems to be back to baseline at this time. He apparently had a headache during that time and resolved with some Percocet. He was having issues trying to obtain words. 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 Currently seems to be back to baseline. Currently, he is on aspirin and Plavix. PAST MEDICAL HISTORY: As stated, plus he has had syncope in the past, COPD, cirrhosis from ethanol. SURGICAL HISTORY: As stated. He had a TAVR with Dr. Oliva at [facility] 07/02, also a pacemaker, post PCI RCA angioplasty 2 vessels, appendectomy, cholecystectomy, left neck dissection in 2000. CURRENT MEDICATIONS AT HOME: Aspirin and Plavix. PHYSICAL EXAMINATION: VITALS: Temperature is 97.2, pulse 18, respiratory rate 18, blood pressure 130/62. He is awake and alert. His speech is slurred, but that is not unusual due to his head and neck dissection surgery. Pupils reactive. Follows commands. Motor-mathis, no drift, no leg lag. Cerebellar testing normal. Toes are downgoing. DTRs are 1+. Sensory is normal. Gait is withheld at this time. His labs are reviewed. IMAGING: Carotid imaging does not show any stenosis, just some what possibly are lymph nodes. Please refer to the report. CT shows possible hygroma, right frontal region. He was already seen by neurosurgery. IMPRESSION: Change in mental status, certainly with word finding, may have been a transient ischemic attack. Agree with the electroencephalogram, echocardiogram, and MRI; I would do with and without contrast, given his cancer history if his pacemaker is MRI compatible, which he states it is. Continue his aspirin and Plavix at this time. Regarding the findings on his carotid ultrasound of the lymph nodes, I would defer that to oncology. Go ahead and start back his tube feeds and have physical therapy assess him as well. If he is stable, discharge planning from my perspective. MD CARLEE Harden , 10:40 AM , 10:52 AM
--- NOTE | 2017-09-16 11:15 | EKG ---
Date Performed: 09/15/2017 Time Performed: 12:28:32 PTAGE: 76 years EKG: ELECTRONIC VENTRICULAR PACEMAKER ABNORMAL RHYTHM ECG NO PREVIOUS TRACING DOCTOR: Toribio Loera Interpretating Date/Time 09/16/2017 11:14:03
--- NOTE | 2017-09-16 12:19 | ECHRPT ---
Indication: CVA/TIA CONCLUSIONS Normal left ventricular size. Mild concentric left ventricular hypertrophy. The left ventricular systolic function is normal with an estimated ejection fraction in the range of 60-65%. Mitral annular calcification is present. The aortic valve prosthesis is normal to two-dimensional, color flow and Doppler interrogation. Trace aortic valve regurgitation. There is trace tricuspid valve regurgitation. The estimated pulmonary arterial pressure is 21 mmHg. No cardiac scource of embolism appreciated BP: / HR: Rhythm: MEASUREMENTS (Male / Female) Normal Values Technical Quality:Good 2D ECHO LV Diastolic Diameter PLAX 4.5 cm 4.2 - 5.9 / 3.9 - 5.3 cm LV Systolic Diameter PLAX 3.2 cm IVS Diastolic Thickness 1.1 cm 0.6 - 1.0 / 0.6 - 0.9 cm LVPW Diastolic Thickness 0.8 cm 0.6 - 1.0 / 0.6 - 0.9 cm LV Relative Wall Thickness 0.4 RV Internal Dim ED PLAX 2.2 cm LVOT Diameter 2.0 cm LA Systolic Diameter LX 2.9 cm 3.0 - 4.0 / 2.7 - 3.8 cm DOPPLER AV Peak Velocity 194.0 cm/s AV Peak Gradient 15.1 mmHg LVOT Peak Velocity 119.0 cm/s LVOT Peak Gradient 5.7 mmHg AV Area Cont Eq pk 1.9 cm Mitral E Point Velocity 48.1 cm/s Mitral A Point Velocity 98.7 cm/s Mitral E to A Ratio 0.5 TR Peak Velocity 197.0 cm/s TR Peak Gradient 15.5 mmHg FINDINGS LEFT VENTRICLE Normal left ventricular size. Mild concentric left ventricular hypertrophy. The left ventricular systolic function is normal with an estimated ejection fraction in the range of 60-65%. RIGHT VENTRICLE Normal right ventricular size and systolic function. LEFT ATRIUM The left atrial size is normal. RIGHT ATRIUM The right atrial size is normal. ATRIAL SEPTUM Normal atrial septal thickness without atrial level shunting by limited color doppler interrogation. AORTA The aortic root and proximal ascending aorta are normal in size on limited imaging. MITRAL VALVE Mitral annular calcification is present. AORTIC VALVE The aortic valve prosthesis is normal to two-dimensional, color flow and Doppler interrogation. Trace aortic valve regurgitation. TRICUSPID VALVE There is trace tricuspid valve regurgitation. The estimated pulmonary arterial pressure is 21 mmHg. PULMONARY VALVE The pulmonary valve is not well visualized. VESSELS The inferior vena cava is normal in size. PERICARDIUM No pericardial effusion. Indy Nieto MD, FACC (Electronically Signed) Final Date:16 September 2017 12:18
--- NOTE | 2017-09-16 15:14 | HHI.PR ---
Subjective Remarks The patient said that he still felt confused. He said that he is on immunotherapy. He said that he "vapes". He wants to leave the hospital soon. Discussed with nursing. Objective Vitals Vital Signs Date Time Temp Pulse Resp B/P (MAP) Pulse Ox O2 Delivery O2 Flow Rate FiO2 09/16/17 12:00 75 09/16/17 11:53 96.0 80 18 149/74 (99) 95 09/16/17 08:00 81 09/16/17 08:00 97.2 80 18 130/62 (84) 95 09/16/17 04:00 96.9 78 18 146/68 (94) 99 09/16/17 04:00 75 09/16/17 00:30 75 09/16/17 00:00 97.7 71 18 161/78 (105) 97 09/15/17 22:51 97.3 74 18 178/76 (110) 96 09/15/17 21:29 98.7 74 18 160/76 (104) 97 09/15/17 17:58 71 09/15/17 15:58 98.2 71 18 174/72 (106) 96 I/O 09/15/17 09/15/17 09/15/17 09/16/17 09/16/17 09/16/17 07:00 15:00 23:00 07:00 15:00 23:00 Intake Total 450 ml 541 ml 2000 ml Balance 450 ml 541 ml 2000 ml Intake Oral 0 ml 2000 ml IV Total 450 ml 541 ml # Voids 3 # Bowel Movements 0 Result Diagram: 09/16/17 0833 09/16/17 0833 Imaging Last Impressions Head CT 09/15/17 1126 Signed Impressions: Service Date/Time: Friday, September 15, 2017 11:59 - CONCLUSION: Suspected subdural hygroma on the right side of the frontal region. No acute process is identified. Toribio Enamorado MD Chest X-Ray 09/15/17 1126 Signed Impressions: Service Date/Time: Friday, September 15, 2017 12:11 - CONCLUSION: Normal examination. Left subclavian bipolar pacer Toribio Enamorado MD Carotid Artery Ultrasound 09/15/17 0000 Signed Impressions: Service Date/Time: Friday, September 15, 2017 19:11 - CONCLUSION: 1. No evidence for hemodynamically significant stenosis. 2. In the right neck a 2.2 x 1 x 1.7 cm solid hypoechoic mass is present with blood flow anterior to the carotid vasculature. There is also a 3.5 x 2.1 x 4 cm mass in the right neck anterior to the bifurcation. Additional abnormal masses are seen felt to represent abnormal lymph nodes including right submandibular region up to 1.2 cm. In the left neck a 2.1 cm abnormal node is seen. Neoplastic processes such as metastatic disease or lymphoma should be entertained. Dedicated cervical imaging with CT neck with contrast suggested. Arik Cadena MD Objective Remarks GENERAL: This is a cachectic male in no acute distress. SKIN: No rashes, ecchymoses or lesions. Cool and dry. HEAD: Atraumatic. Normocephalic. No temporal or scalp tenderness. EYES: Pupils equal round and reactive. Extraocular motions intact. No scleral icterus. No injection or drainage. ENT: Nose without bleeding, purulent drainage or septal hematoma. Throat without erythema, tonsillar hypertrophy or exudate. Uvula midline. Airway patent. Tongue is swollen. NECK: Trachea midline. No JVD or lymphadenopathy. Supple, nontender, no meningeal signs. CARDIOVASCULAR: Regular rate and rhythm without murmurs, gallops, or rubs. RESPIRATORY: Scattered rhonchi, slight wheezing. GASTROINTESTINAL: Abdomen soft, non-tender, nondistended. No hepato-splenomegaly , or palpable masses. No guarding. PEG is in place. MUSCULOSKELETAL: Extremities without clubbing, cyanosis, or edema. No joint tenderness, effusion, or edema noted. NEUROLOGICAL: AAO X3. Answers questions appropriately. Cranial nerves II through XII intact. Motor and sensory grossly within normal limits. Five out of 5 muscle strength in all muscle groups. Patient does have a slight slurred speech secondary to swollen tongue. PSYCH: Mood and affect appropriate. Medications and IVs Current Medications Medications (Trade) Dose Ordered Sig/Lyla Route Start Time Stop Time Status Last Admin Sodium Chloride 1,000 ml @ 75 mls/hr [id number] IV 09/15/17 14:03 09/15/17 22:48 (NS Flush) 2 ml UNSCH PRN IV FLUSH 09/15/17 14:15 (NS Flush) 2 ml BID IV FLUSH 09/15/17 21:00 (Tylenol) 650 mg Q4H PRN PO 09/15/17 14:15 (Zofran Inj) 4 mg Q6H PRN IVP 09/15/17 14:15 (Narcan Inj) 0.4 mg UNSCH PRN IV PUSH 09/15/17 14:15 (Milk Of Magnesia Liq) 30 ml Q12H PRN PO 09/15/17 14:15 (Senokot) 17.2 mg Q12H PRN PO 09/15/17 14:15 (Dulcolax Supp) 10 mg DAILY PRN RECTAL 09/15/17 14:15 (Ecotrin Ec) 81 mg DAILY PO 09/16/17 09:00 09/16/17 09:22 (Plavix) 75 mg DAILY PO 09/16/17 09:00 (Vasotec Inj) 1.25 mg Q6H PRN IV PUSH 09/15/17 17:45 09/15/17 22:48 (Free Water) 200 ml Q6HR G-TUBE 09/16/17 18:00 A/P Assessment and Plan Altered mental status CT scan shows subdural hygroma of the right sided frontal region. No baseline for comparison. ED provider spoke with Dr. Landeros. Neurosurgery recommendations appreciated. Neurology consult appreciated. Carotid US with multiple masses/ enlarged lymph nodes. Echo with EF 60-65%. - We will monitor on telemetry. - MRI of the brain and EEG pending. - Neuro checks every 4 hours. - PT. Headache Resolved after giving a dose of Percocet yesterday. - See treatment as above. Coronary artery disease/ Aortic stenosis Status post stent placement, pacemaker placement and TAVR. - Continue home medication regimen. 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 - Being managed by Dr. Rehman. Patient currently receiving immunotherapy. Consult placed to oncology. - continue bolus tube feeds with vital 1.5 and adjust free water as needed. Appreciate dietary recs. DVT prophylaxis: Juan Luis Evangelista DO Sep 16, 2017 15:14
[2017-09-16] MEDS ORDERED: RESP: ALBUTEROL 2.5 MG/IPRATROPIUM 0.5 MG NEB (PRN) NEB (16:15)
[2017-09-16] MEDS ORDERED: RESP: ALBUTEROL 2.5 MG/IPRATROPIUM 0.5 MG NEB (SCH) NEB ONE (16:15)
[2017-09-16] MEDS: FREE WATER G-TUBE SCH (18:00)
--- NOTE | 2017-09-16 19:58 | MG ---
cc: Shonda Montes MD EEG NUMBER: [id number] REFERRING PHYSICIAN: Dr. Mcmillan ROOM: 1621 Photic done. Awake, drowsy, asleep study. CT, hygroma, right frontal. Admitted with headache, trouble speaking, history of throat cancer, on aspirin and Plavix. DESCRIPTION OF RECORD: Patient has a background rhythm of 7-8 Hz. Initial portion is noted when he is asleep. It shows some minor attenuation of the background. EKG cannot be interpreted. I do not see a T wave on here. There was 1 lead, unfortunately. There is a lot of muscle movement, but overall, symmetrical background, normal alpha when he is awake. Photic stimulation with a normal driving response. No epileptic activity. IMPRESSION: Slow electroencephalogram initially due to sleep, but when he awoke, the patient's alpha rhythm was normal. No epileptic activity. Clinical correlation. Shonda Montes MD DF/SB , 06:51 PM , 07:57 PM
[2017-09-16] MEDS: DOCUSATE SODIUM 50 MG/SENNA 8.6 MG TAB PO SCH (21:00)
[2017-09-17] VITALS (7 sets, daily range): BP systolic 126–176; BP diastolic 62–81; PULSE 65–88; RESP 15–18; TEMP 96.6–97.9; O2SAT 95–98
[2017-09-17] MEDS: FREE WATER G-TUBE SCH ×5 (00:31→23:17)
[2017-09-17] MEDS ORDERED: oxyCODONE/ACETAMINOPHEN 5 MG/325 MG TAB PO ONE (02:30)
[2017-09-17] MEDS: SODIUM CHLOR 0.45% 1000 ML INJ 1,000 ML IV SCH (04:34)
[2017-09-17] MEDS: CLOPIDOGREL 75 MG TAB PO SCH (07:26)
[2017-09-17] MEDS: SODIUM CHLORIDE 0.9% FLUSH 10 ML FLUSH IV FLUSH SCH ×2 (07:26→21:00)
[2017-09-17] MEDS: ASPIRIN EC 81 MG TABEC PO SCH (07:27)
[2017-09-17] MEDS: DOCUSATE SODIUM 50 MG/SENNA 8.6 MG TAB PO SCH ×2 (07:27→21:00)
[2017-09-17 09:35] LABS: HEMATOCRIT 39.5 % (39.0-51.0); HEMOGLOBIN 13.5 GM/DL (13.0-17.0); MEAN CELL VOLUME 89.3 FL (80.0-100.0); MEAN CORPUSCULAR HEMOGLOBIN 30.5 PG (27.0-34.0); MEAN CORPUSCULAR HGB CONC 34.2 % (32.0-36.0); MEAN PLATELET VOLUME 7.7 FL (7.0-11.0); PLATELET COUNT 181 TH/MM3 (150-450); RED BLOOD COUNT 4.42 MIL/MM3 (4.50-5.90); RED CELL DISTRIBUTION WIDTH 15.9 % (11.6-17.2); WHITE BLOOD COUNT 7.1 TH/MM3 (4.0-11.0)
[2017-09-17 10:14] LABS: BICARBONATE 27.9 MEQ/L (21.0-32.0); CALCIUM 8.4 MG/DL (8.5-10.1); CREATININE 0.67 MG/DL (0.60-1.30); MAGNESIUM 1.9 MG/DL (1.5-2.5)
--- NOTE | 2017-09-17 13:08 | HHI.NSPN ---
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 He is a patient of Dr. Rehman. He also has a history of aortic stenosis, AVR via TAVR, permanent pacemaker he states about 7 months ago, heart disease with stent, PEG placement. He apparently came in with altered mental status. He seems to be back to baseline at this time. He apparently had a headache during that time and resolved with some Percocet. He was having issues trying to obtain words. 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 Currently seems to be back to baseline. Currently, he is on aspirin and Plavix. CT of the brain showed subdural hygromas,. Neurosurgical consultation was requested 09/17: no changes overnight, awaiting soft tissue of neck, also for MRI Brain today. EEG neg for seizures (Niki Bass) Labs, Micro, & Vital Signs Results Date Time Temp Pulse Resp B/P (MAP) Pulse Ox O2 Delivery O2 Flow Rate FiO2 09/17/17 12:00 97.5 80 16 130/62 (84) 95 09/17/17 09:05 153/67 (95) 09/17/17 08:00 96.9 71 15 173/76 (108) 97 09/17/17 04:00 96.6 65 15 126/70 (88) 98 09/17/17 00:15 77 09/16/17 23:47 96.9 80 15 117/65 (82) 97 09/16/17 20:00 88 09/16/17 16:00 96.0 69 18 127/64 (85) 97 09/16/17 16:00 66 Constitutional Vital Signs Date Time Temp Pulse Resp B/P (MAP) Pulse Ox O2 Delivery O2 Flow Rate FiO2 09/17/17 12:00 97.5 80 16 130/62 (84) 95 09/17/17 09:05 153/67 (95) 09/17/17 08:00 96.9 71 15 173/76 (108) 97 09/17/17 04:00 96.6 65 15 126/70 (88) 98 09/17/17 00:15 77 09/16/17 23:47 96.9 80 15 117/65 (82) 97 09/16/17 20:00 88 09/16/17 16:00 96.0 69 18 127/64 (85) 97 09/16/17 16:00 66 (Niki Bass) Physical Exam Mr. Irizarry is alert, awake in no acute distress. Following commands. Cranial nerve examination: pupils equal, round, and reactive to light. Extra- ocular movements are intact. Facial motor are normal and symmetrical. HEENT: normocephalic, atraumatic, nonicteric sclera Neck is decreased range of motion. mass anterior left side of neck. Motor: moving all major muscle groups of both upper and lower extremities. Sensory examination is intact to light touch in both the upper and lower extremities, symmetrically. Deep tendon reflexes are 2+ in the upper and lower extremities. I bilateral plantar flexion response. Hoffmanns sign is negative. no clonus Cerebellar examination is intact to [id number] test Gait: ambulating without assistance Respiratory: clear, no wheezing Heart: regular rate, pacemaker Skin: warm and dry (Niki Bass) Mr Irizarry is alert, awake and oriented to time, place and person. Speech is fluent. Higher cognitive functions are normal. Slurred speech due to his head and neck cancer Cranial nerve examination demonstrates the pupils to be equal, round, and reactive to light. Extra-ocular movements are intact. Facial motor and sensory function are normal and symmetrical. Gross hearing is intact, bilaterally. The uvula is midline and elevates symmetrically with the soft palate. Sternocleidomastoid and trapezius muscles have normal and symmetrical strength. Other cranial nerves are intact. Neck is soft and supple. Cervical spine has a full range of motion in anterior flexion, extension, lateral bending, and rotation without pain. There is no tenderness to palpation to the spinous processes or paraspinal muscles. Muscle testing reveals normal bulk and tone overall without rigidity, spasticity , fasciculations, or atrophy. Muscle strength is 5/5 in all muscle groups of both upper extremities including deltoid, biceps, triceps, brachioradialis, wrist extension and network controller. In the lower extremities, strength is 5/5 in both iliopsoas, quadriceps, hamstrings, plantar flexion, dorsiflexion, and extensor hallicus longus. Sensory examination is intact to light touch and sharp/dull discrimination in both the upper and lower extremities, symmetrically. Deep tendon reflexes are 1+ and symmetrical in the biceps, triceps, and brachioradialis, bilaterally, in the upper extremities. In the lower extremities , the patellar and Achilles are 1+, bilaterally. There is a bilateral plantar flexion response. Hoffmanns sign is negative. There is no clonus or other abnormal reflexes noted. Cerebellar examination is intact to aculbn-ul-iomz test, rapid rhythmic alternating motion. CARDIOVASCULAR: Regular rate and rhythm without murmurs, gallops, or rubs. Pacemaker intact and palpable RESPIRATORY: Clear to auscultation. Breath sounds equal bilaterally. No wheezes , rales, or rhonchi. GASTROINTESTINAL: Abdomen soft, non-tender, nondistended. No hepato-splenomegaly , or palpable masses. No guarding. PEG is in place. MUSCULOSKELETAL: Extremities without clubbing, cyanosis, or edema. No joint tenderness, effusion, or edema noted. No calf tenderness. Negative Homans sign bilaterally (Gilbert Landeros MD) Medications Current Medications Current Medications Medications (Trade) Dose Ordered Sig/Lyla Route PRN Reason Start Time Stop Time Status Last Admin Dose Admin Sodium Chloride 1,000 ml @ 75 mls/hr [id number] IV 09/15/17 14:03 09/17/17 04:34 Sodium Chloride (NS Flush) 2 ml UNSCH PRN IV FLUSH FLUSH AFTER USING IV ACCESS 09/15/17 14:15 Sodium Chloride (NS Flush) 2 ml BID IV FLUSH 09/15/17 21:00 Acetaminophen (Tylenol) 650 mg Q4H PRN PO TEMP > 100.4 09/15/17 14:15 Ondansetron HCl (Zofran Inj) 4 mg Q6H PRN IVP NAUSEA OR VOMITING 09/15/17 14:15 Naloxone HCl (Narcan Inj) 0.4 mg UNSCH PRN IV PUSH SEE LABEL COMMENTS 09/15/17 14:15 Magnesium Hydroxide (Milk Of Magnesia Liq) 30 ml Q12H PRN PO Mild constipation 09/15/17 14:15 Sennosides (Senokot) 17.2 mg Q12H PRN PO Moderate constipation 09/15/17 14:15 Bisacodyl (Dulcolax Supp) 10 mg DAILY PRN RECTAL SEVERE CONSITIPATION 09/15/17 14:15 Aspirin (Ecotrin Ec) 81 mg DAILY PO 09/16/17 09:00 09/16/17 09:22 Clopidogrel Bisulfate (Plavix) 75 mg DAILY PO 09/16/17 09:00 09/17/17 07:26 Enalaprilat (Vasotec Inj) 1.25 mg Q6H PRN IV PUSH SBP>180 or DBP>100 09/15/17 17:45 09/15/17 22:48 Water (Free Water) 200 ml Q6HR G-TUBE 09/16/17 18:00 09/17/17 12:00 Albuterol/ Ipratropium (Duoneb Neb) 1 ampule Q2HR NEB PRN NEB dyspnea 09/16/17 16:15 Senna/Docusate Sodium (Lory-Colace) 1 tab BID PO 09/16/17 21:00 (Niki Bass) Current Medications Current Medications Sodium Chloride (NS Flush) 2 ml UNSCH PRN IVF FLUSH AFTER USING IV ACCESS; Start 09/15/17 at 11:30; Stop 09/15/17 at 14:34; Status DC Sodium Chloride 1,000 ml @ 75 mls/hr [id number] IV Last administered on 09/17/17at 04:34; Start 09/15/17 at 14:03 Sodium Chloride (NS Flush) 2 ml UNSCH PRN IV FLUSH FLUSH AFTER USING IV ACCESS ; Start 09/15/17 at 14:15 Sodium Chloride (NS Flush) 2 ml BID IV FLUSH ; Start 09/15/17 at 21:00 Acetaminophen (Tylenol) 650 mg Q4H PRN PO TEMP > 100.4; Start 09/15/17 at 14:15 Ondansetron HCl (Zofran Inj) 4 mg Q6H PRN IVP NAUSEA OR VOMITING; Start at 14:15 Naloxone HCl (Narcan Inj) 0.4 mg UNSCH PRN IV PUSH SEE LABEL COMMENTS; Start at 14:15 Magnesium Hydroxide (Milk Of Magnferdinand Liq) 30 ml Q12H PRN PO Mild constipation ; Start 09/15/17 at 14:15 Sennosides (Senokot) 17.2 mg Q12H PRN PO Moderate constipation; Start 09/15/17 at 14:15 Bisacodyl (Dulcolax Supp) 10 mg DAILY PRN RECTAL SEVERE CONSITIPATION; Start at 14:15 Aspirin (Ecotrin Ec) 81 mg DAILY PO Last administered on 09/16/17at 09:22; Start 09/16/17 at 09:00 Clopidogrel Bisulfate (Plavix) 75 mg DAILY PO Last administered on 09/17/17at 07: 26; Start 09/16/17 at 09:00 Enalaprilat (Vasotec Inj) 1.25 mg Q6H PRN IV PUSH SBP>180 or DBP>100 Last administered on 09/15/17at 22:48; Start 09/15/17 at 17:45 Water (Free Water) 200 ml Q6HR G-TUBE Last administered on 09/17/17at 12:00; Start 09/16/17 at 18:00 Albuterol/ Ipratropium (Duoneb Neb) 1 ampule ONCE ONCE NEB Last administered on 09/16/17at 16:15; Start 09/16/17 at 16:15; Stop 09/16/17 at 16:16; Status DC Albuterol/ Ipratropium (Duoneb Neb) 1 ampule Q2HR NEB PRN NEB dyspnea; Start at 16:15 Senna/Docusate Sodium (Lory-Colace) 1 tab BID PO ; Start 09/16/17 at 21:00 Oxycodone/ Acetaminophen (Percocet 5-325 Mg) 1 tab ONCE ONCE PO Last administered on 09/17/17at 02:35; Start 09/17/17 at 02:30; Stop 09/17/17 at 02:31; Status DC (Gilbert Landeros MD) Medical Decision Making MDM Remarks 76 y/o male presents for AMS subdural hygroma EEG neg for seizures neck mass - history of throat CA (Niki Bass) Plan Plan Remarks CT soft tissue of neck also will f/u MRI Brain cont nonsurgical management of hygroma Neurology following further recommendations to follow upon completion of studies (Niki Bass) Attending Statement Merry VTE Risk Assessment: Mod/High Risk (score >= 2) Caprini Risk Assessment Model Point Value = 1 Point Value = 2 Point Value = 3 Point Value = 5 Age 41-60 Minor surgery BMI > 25 kg/m2 Swollen legs Varicose veins or History of unexplained or recurrent spontaneous Oral contraceptives or hormone replacement Sepsis (< 1 month) Serious lung disease, including pneumonia (< 1 month) Abnormal pulmonary function Acute myocardial infarction Congestive heart failure (< 1 month) History of inflammatory bowel disease Medical patient at bed rest Age 61-74 Arthroscopic surgery Major open surgery (> 45 min) Laparoscopic surgery (> 45 min) Malignancy Confined to bed (> 72 hours) Immobilizing plaster cast Central venous access Age >= 75 History of VTE Family history of VTE Factor V Leiden Prothrombin [id number] Lupus anticoagulant Anticardiolipin antibodies Elevated serum homocysteine Heparin-induced thrombocytopenia Other congenital or acquired thrombophilia Stroke (< 1 month) Elective arthroplasty Hip, pelvis, or leg fracture Acute spinal cord injury (< 1 month) Prophylaxis Regimen Total Risk Factor Score Risk Level Prophylaxis Regimen 0-1 Low Early ambulation 2 Moderate Order ONE of the following: *Sequential Compression Device (SCD) *Heparin 5000 units SQ BID 3-4 Higher Order ONE of the following medications: *Heparin 5000 units SQ TID *Enoxaparin/Lovenox 40 mg SQ daily (WT < 150 kg, CrCl > 30 mL/min) *Enoxaparin/Lovenox 30 mg SQ daily (WT < 150 kg, CrCl > 10-29 mL/min) *Enoxaparin/Lovenox 30 mg SQ BID (WT < 150 kg, CrCl > 30 mL/min) AND/OR *Sequential Compression Device (SCD) 5 or more Highest Order ONE of the following medications: *Heparin 5000 units SQ TID (Preferred with Epidurals) *Enoxaparin/Lovenox 40 mg SQ daily (WT < 150 kg, CrCl > 30 mL/min) *Enoxaparin/Lovenox 30 mg SQ daily (WT < 150 kg, CrCl > 10-29 mL/min) *Enoxaparin/Lovenox 30 mg SQ BID (WT < 150 kg, CrCl > 30 mL/min) AND *Sequential Compression Device (SCD) Inpatient MDM Attending Statement 76-year-old male with extensive past medical history who presented altered mental status I personally reviewed again his radiological studies Head CT 09/15/171125 Signed Impressions: Service Date/Time: Friday, September 15, 2017 11:59 - CONCLUSION: Suspected subdural hygroma on the right side of the frontal region. No acute process is identified. Toribio Enamorado MD Chest X-Ray 09/15/171125 Signed Impressions: Service Date/Time: Friday, September 15, 2017 12:11 - CONCLUSION: Normal examination. Left subclavian bipolar pacer MD Merry Bond VTE Risk Assessment: Mod/High Risk (score >= 2) Caprini Risk Assessment Model Point Value = 1 Point Value = 2 Point Value = 3 Point Value = 5 Age 41-60 Minor surgery BMI > 25 kg/m2 Swollen legs Varicose veins or History of unexplained or recurrent spontaneous Oral contraceptives or hormone replacement Sepsis (< 1 month) Serious lung disease, including pneumonia (< 1 month) Abnormal pulmonary function Acute myocardial infarction Congestive heart failure (< 1 month) History of inflammatory bowel disease Medical patient at bed rest Age 61-74 Arthroscopic surgery Major open surgery (> 45 min) Laparoscopic surgery (> 45 min) Malignancy Confined to bed (> 72 hours) Immobilizing plaster cast Central venous access Age >= 75 History of VTE Family history of VTE Factor V Leiden Prothrombin [id number] Lupus anticoagulant Anticardiolipin antibodies Elevated serum homocysteine Heparin-induced thrombocytopenia Other congenital or acquired thrombophilia Stroke (< 1 month) Elective arthroplasty Hip, pelvis, or leg fracture Acute spinal cord injury (< 1 month) Prophylaxis Regimen Total Risk Factor Score Risk Level Prophylaxis Regimen 0-1 Low Early ambulation 2 Moderate Order ONE of the following: *Sequential Compression Device (SCD) *Heparin 5000 units SQ BID 3-4 Higher Order ONE of the following medications: *Heparin 5000 units SQ TID *Enoxaparin/Lovenox 40 mg SQ daily (WT < 150 kg, CrCl > 30 mL/min) *Enoxaparin/Lovenox 30 mg SQ daily (WT < 150 kg, CrCl > 10-29 mL/min) *Enoxaparin/Lovenox 30 mg SQ BID (WT < 150 kg, CrCl > 30 mL/min) AND/OR *Sequential Compression Device (SCD) 5 or more Highest Order ONE of the following medications: *Heparin 5000 units SQ TID (Preferred with Epidurals) *Enoxaparin/Lovenox 40 mg SQ daily (WT < 150 kg, CrCl > 30 mL/min) *Enoxaparin/Lovenox 30 mg SQ daily (WT < 150 kg, CrCl > 10-29 mL/min) *Enoxaparin/Lovenox 30 mg SQ BID (WT < 150 kg, CrCl > 30 mL/min) AND *Sequential Compression Device (SCD) The MRI of the brain and the neck are pending Frontal hygroma neuro checks in a serial fashion. Non surgical management Consul;t neurology for altered mental status/encephalopathy. this is not related to the hygroma.. Change in mental status with word finding difficulties , may have been a transient ischemic attack. physical therapy evaluation recommend electroencephalogram, echocardiogram, and MRI with and without contrast, given his cancer history if his pacemaker is MRI compatible Pulmonary. aggressive pulmonary toilette, nasotracheal suction, and breathing treatments with nebulizers. Head and neck cancer with metastases to lymph nodes and possible liver. Regarding the findings on his carotid ultrasound of the lymph nodes, I would defer that to oncology, managed by Dr. Rehman. currently receiving chemo. Daily Speech therapy and OT Headache. Resolved after giving a dose of Percocet Coronary artery disease status post stent placement, pacemaker placement, aortic stenosis s/p TAVR -Continue with home medication. History of syncopal episodes -This has been worked up numerous times in the past. Thought to be related to hypotensive episode. At the moment patient has mild hypertension. Continue monitor, adjust medication as needed. s/p PEG -patient is cachetic/malnouished. Daughter is feeding patient with a pured diet. Consult dietitian. Renal. monitor closely urine output, BUN and creatinine Endocrine.Monitor serial Acu checks and SSI as needed in detail ID monitor for signs of infection Protonix for stress ulcer prophylaxis Rasheed hose and SCD's for DVT prophylaxis The exam, history, and the medical decision-making described in the above note were completed with the assistance of the mid-level provider. I reviewed and agree with the findings presented. I attest that I had a [id number] encounter with the patient on the same day, and personally performed and documented my assessment and findings in the medical record. (Gilbert Landeros MD) Niki Bass Sep 17, 2017 13:08 Gilbert Landeros MD Sep 17, 2017 14:10
[2017-09-17] MEDS ORDERED: GADODIAMIDE PF 287 MG/ML 5 ML VIAL (for RAD MRI) IV PUSH ONE (14:00)
--- NOTE | 2017-09-17 14:28 | RADRPT ---
EXAM DATE/TIME: 09/17/2017 13:38 [facility] COMPARISON: CT BRAIN W/O CONTRAST, September 15, 2017, 11:59. INDICATIONS : Right hand numbness. MEDICAL HISTORY : Carcinoma, squamous cell. SURGICAL HISTORY : Cholecystectomy. Appendectomy. TARVS, cardiac stent, [employer] pacemaker, feeding tube ENCOUNTER: Subsequent ACUITY: 1 day PAIN SCORE: 5/10 LOCATION: Bilateral cranial TECHNIQUE: Multiplanar, multisequence MRI of the brain was performed without contrast. FINDINGS: CEREBRUM: A cystic hygroma is seen on the right. Maximum thickness is 7 mm. No acute hemorrhage. The ventricles are normal for age. No evidence of midline shift, mass lesion, hemorrhage or acute infarction. No extraaxial fluid collections are seen. The pituitary gland and suprasellar cistern are normal in con figuration. WHITE MATTER: No significant signal abnormalities are seen in the white matter. POSTERIOR FOSSA: The cerebellum and brainstem are intact. The 4th ventricle is midline. The cerebellopontine angle is unremarkable. The cerebellar tonsils are normal in position. DIFFUSION IMAGING: No focal areas of restricted diffusion are seen. No evidence of acute infarction. EXTRACRANIAL: The visualized portions of the orbits and paranasal sinuses are unremarkable. CONCLUSION: 1. Cystic hygroma on the right. No acute hemorrhage. 2. No acute intracranial abnormality. Po Ascencio Jr., MD on September 17, 2017 at 14:22 Board Certified Radiologist. This report was verified electronically.
--- NOTE | 2017-09-17 15:59 | RADRPT ---
EXAM DATE/TIME: 09/17/2017 13:38 [place] COMPARISON: CT BRAIN W/O CONTRAST, September 15, 2017, 11:59. INDICATIONS : Left sided mass upper jaw region possible cancer. CONTRAST: 12 cc Omniscan (gadodiamide) IV MEDICAL HISTORY : Squamous cell cancer, Tongue and throat cancer, aortic stenosis. SURGICAL HISTORY : Cholecystectomy. Appendectomy. Carotid stent. Feeding tube, [employer] pacemaker. ENCOUNTER: Initial ACUITY: 1 day PAIN SCORE: 4/10 LOCATION: Left jaw region. TECHNIQUE: Multisequence, multiplanar MRI examination was performed. FINDINGS: There is extensive edema within the oral as well as chronic mucosal enhancement following administrat ion of contrast. There is asymmetric enhancement in the region of the glossotonsillar sulcus on the r ight side measuring 2.8 x 1.7 CM. Malignancy is not excluded. PET/CT scan is recommended to further e valuation if clinically indicated.. There is an enlarged 1.7 cm lymph node in group 2 on the last and metastatic disease is not excluded. There is a 2 cm nodule in the left lobe of the thyroid gland determine in appearance. Ultrasound exam ination is recommended if clinically indicated. No marrow edema is identified. No bony destruction is identified. CONCLUSION: 1. Findings suspicious for mass in the glossotonsillar sulcus on the right as well as enlarged lymph node on the left. 2. Direct visualization is recommended. 3. PET/CT scan is recommended to further evaluation if clinically indicated. Jose Rodriguez MD on September 17, 2017 at 15:17 Board Certified Radiologist. This report was verified electronically.
--- NOTE | 2017-09-17 16:46 | HHI.PR ---
Subjective Remarks The patient was ambulating about the room. He was on the phone with his daughter. He was complaining of some pain on the right side of his neck. He tried to demonstrate how he could transfer his umaña to me. He mentions feeling a little disoriented. Objective Vitals Vital Signs Date Time Temp Pulse Resp B/P (MAP) Pulse Ox O2 Delivery O2 Flow Rate FiO2 09/17/17 16:00 97.5 83 15 138/63 (88) 96 09/17/17 12:00 97.5 80 16 130/62 (84) 95 09/17/17 09:05 153/67 (95) 09/17/17 08:00 96.9 71 15 173/76 (108) 97 09/17/17 04:00 96.6 65 15 126/70 (88) 98 09/17/17 00:15 77 09/16/17 23:47 96.9 80 15 117/65 (82) 97 09/16/17 20:00 88 I/O 09/16/17 09/16/17 09/16/17 09/17/17 09/17/17 09/17/17 07:00 15:00 23:00 07:00 15:00 23:00 Intake Total 541 ml 2000 ml 900 ml 1334 ml 0 ml Balance 541 ml 2000 ml 900 ml 1334 ml 0 ml Intake Oral 0 ml 2000 ml 550 ml 0 ml 0 ml IV Total 541 ml 934 ml Tube Feeding 350 ml Other 400 ml # Voids 3 2 8 4 4 # Bowel Movements 0 0 2 0 Result Diagram: 09/17/1725 09/17/17 0825 Imaging Last Impressions Soft Tissue MRI 09/17/17 0000 Signed Impressions: Service Date/Time: Sunday, September 17, 2017 13:38 - CONCLUSION: 1. Findings suspicious for mass in the glossotonsillar sulcus on the right as well as enlarged lymph node on the left. 2. Direct visualization is recommended. 3. PET/CT scan is recommended to further evaluation if clinically indicated. Jose Rodriguez MD Brain MRI 09/17/17 0000 Signed Impressions: Service Date/Time: Sunday, September 17, 2017 13:38 - CONCLUSION: 1. Cystic hygroma on the right. No acute hemorrhage. 2. No acute intracranial abnormality. Po Ascencio Jr., MD Head CT 09/15/17 1126 Signed Impressions: Service Date/Time: Friday, September 15, 2017 11:59 - CONCLUSION: Suspected subdural hygroma on the right side of the frontal region. No acute process is identified. Toribio Enamorado MD Chest X-Ray 09/15/17 1126 Signed Impressions: Service Date/Time: Friday, September 15, 2017 12:11 - CONCLUSION: Normal examination. Left subclavian bipolar pacer Toribio Enamorado MD Carotid Artery Ultrasound 09/15/17 0000 Signed Impressions: Service Date/Time: Friday, September 15, 2017 19:11 - CONCLUSION: 1. No evidence for hemodynamically significant stenosis. 2. In the right neck a 2.2 x 1 x 1.7 cm solid hypoechoic mass is present with blood flow anterior to the carotid vasculature. There is also a 3.5 x 2.1 x 4 cm mass in the right neck anterior to the bifurcation. Additional abnormal masses are seen felt to represent abnormal lymph nodes including right submandibular region up to 1.2 cm. In the left neck a 2.1 cm abnormal node is seen. Neoplastic processes such as metastatic disease or lymphoma should be entertained. Dedicated cervical imaging with CT neck with contrast suggested. Arik Cadena MD Objective Remarks GENERAL: This is a cachectic male in no acute distress. SKIN: No rashes, ecchymoses or lesions. Cool and dry. HEAD: Atraumatic. Normocephalic. No temporal or scalp tenderness. EYES: Pupils equal round and reactive. Extraocular motions intact. No scleral icterus. No injection or drainage. ENT: Nose without bleeding, purulent drainage or septal hematoma. Throat without erythema, tonsillar hypertrophy or exudate. Uvula midline. Airway patent. Tongue is swollen. NECK: Trachea midline. Tender to palpation along the right side of the neck. CARDIOVASCULAR: Regular rate and rhythm without murmurs, gallops, or rubs. RESPIRATORY: Scattered rhonchi, slight wheezing. GASTROINTESTINAL: Abdomen soft, non-tender, nondistended. No hepato-splenomegaly , or palpable masses. No guarding. PEG is in place. MUSCULOSKELETAL: Extremities without clubbing, cyanosis, or edema. No joint tenderness, effusion, or edema noted. NEUROLOGICAL: AAO X3. Answers questions appropriately. Cranial nerves II through XII intact. Motor and sensory grossly within normal limits. Five out of 5 muscle strength in all muscle groups. Patient does have a slight slurred speech secondary to swollen tongue. PSYCH: Mood and affect appropriate. Medications and IVs Current Medications Medications (Trade) Dose Ordered Sig/Lyal Route Start Time Stop Time Status Last Admin Sodium Chloride 1,000 ml @ 75 mls/hr [id number] IV 09/15/17 14:03 09/17/17 04:34 (NS Flush) 2 ml UNSCH PRN IV FLUSH 09/15/17 14:15 (NS Flush) 2 ml BID IV FLUSH 09/15/17 21:00 (Tylenol) 650 mg Q4H PRN PO 09/15/17 14:15 (Zofran Inj) 4 mg Q6H PRN IVP 09/15/17 14:15 (Narcan Inj) 0.4 mg UNSCH PRN IV PUSH 09/15/17 14:15 (Milk Of Magnesia Liq) 30 ml Q12H PRN PO 09/15/17 14:15 (Senokot) 17.2 mg Q12H PRN PO 09/15/17 14:15 (Dulcolax Supp) 10 mg DAILY PRN RECTAL 09/15/17 14:15 (Ecotrin Ec) 81 mg DAILY PO 09/16/17 09:00 09/16/17 09:22 (Plavix) 75 mg DAILY PO 09/16/17 09:00 09/17/17 07:26 (Vasotec Inj) 1.25 mg Q6H PRN IV PUSH 09/15/17 17:45 09/15/17 22:48 (Free Water) 200 ml Q6HR G-TUBE 09/16/17 18:00 09/17/17 12:00 (Duoneb Neb) 1 ampule Q2HR NEB PRN NEB 09/16/17 16:15 (Lory-Colace) 1 tab BID PO 09/16/17 21:00 A/P Assessment and Plan Altered mental status CT scan shows subdural hygroma of the right sided frontal region. No baseline for comparison. ED provider spoke with Dr. Landeros. Neurosurgery recommendations appreciated. Neurology consult appreciated. Carotid US with multiple masses/ enlarged lymph nodes. Echo with EF 60-65%. MRI neck: Findings suspicious for mass in the glossotonsillar sulcus on the right as well as enlarged lymph node on the left. MRI brain: Cystic hygroma on the right. No acute hemorrhage; No acute intracranial abnormality. EEG without seizure activity. - follow up with neurology and neurosurgery. - Neuro checks every 4 hours. - PT. - continue medication regimen including ASA and Plavix. 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 MRIs as above. - Being managed by Dr. Rehman. Patient currently receiving immunotherapy. Consult placed to oncology. - continue bolus tube feeds with vital 1.5 and adjust free water as needed. Appreciate dietary recs. Coronary artery disease/ Aortic stenosis Status post stent placement, pacemaker placement and TAVR. - Continue home medication regimen. - telemetry. DVT prophylaxis: SCDs Discharge Planning Await hematology Juan Luis Soto DO Sep 17, 2017 16:46
[2017-09-18] VITALS (7 sets, daily range): BP systolic 100–135; BP diastolic 50–68; PULSE 77–95; RESP 17–18; TEMP 97.1–97.8; O2SAT 92–99
[2017-09-18] MEDS: FREE WATER G-TUBE SCH ×3 (08:00→18:00)
--- NOTE | 2017-09-18 08:52 | MB ---
cc: Lazaro Rehman MD DATE OF CONSULT: 09/17/2017 REASON FOR CONSULTATION: Patient with head and neck cancer receiving immunotherapy, admitted with recent history of headaches and difficulty finding words. PATIENT PROFILE: The patient is a 76-year-old male. He is . He stopped smoking 9 years ago and previously had smoked 1-1/2 packs of cigarettes per day. He was born in [place]. He has three children, two sons and one daughter. He has lived in [place] for 20 years. He is currently residing with his daughter in [place]. 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 He has not had any alcohol for 40 years and prior to this was alcoholic. HISTORY OF PRESENT ILLNESS: The patient's history dates back to 2000 when he was found to have a mass in the left neck which was a squamous cell cancer. He had a left neck dissection and, according to his daughter, had biopsies of the base of the tongue and left tonsil which were negative. He did not receive any radiation therapy. He did receive chemotherapy over what sounds like three months. In 2013 he developed recurrent disease involving the base of the tongue and neck. He was evaluated at [facility] and chemotherapy and radiation which is the standard of care was recommended. He declined. The second opinion recommended the same treatment. One would have anticipated that he would in a short period of time. He did remarkably well and had minimal progression which was asymptomatic. He saw another medical oncologist who recommended radiation therapy with cisplatin in 2015. On September 14, 2015, he had a PET scan which showed a prominent hypermetabolic mass at the base of the tongue with an SUV of 10. There was bilateral cervical adenopathy. There was a new focus of disease in the upper right lobe of the liver with an SUV of 4.4 suspicious for metastatic disease. The patient had multiple episodes of syncope. He was found to have aortic stenosis and in spite of the malignancy was able to undergo a TAVR to replace the aortic valve. Subsequent to this I saw him in the clinic and felt that there was slowly progressive disease. A decision was made to treat him with immunotherapy. Given the probability of disease in the liver and his desire not to receive radiation therapy, I elected to treat him with systemic therapy. He was frail and I felt he would have trouble tolerating chemotherapy and for this reason he was treated with pembrolizumab with the treatment administered on September 11, 2017. About five or six days later, he developed headaches in the area of the right orbit. He also had difficulty finding words for several days. He felt confused and unable to express himself. He went to the emergency room and was admitted with the above history. He has had a number of studies; he had a carotid ultrasound on 09/15/2017. There was no evidence of hemodynamically significant stenosis involving the vertebral arteries, left or right carotid. He was found to have a 3.5 cm mass in the right neck anterior to the bifurcation. There were additional abnormal masses felt to represent lymph nodes including the right submandibular region and the left neck. A chest x-ray was normal except for left subclavian bipolar pacer. Soft tissue MRI of the neck showed suspicious mass in the glossotonsillar sulcus on the right as well as some large lymph nodes on the left. Most importantly an MRI of the brain without contrast showed only a cystic hygroma on the right; there was no acute hemorrhage; there was no intracranial abnormality to suggest a stroke or metastatic disease. The patient is currently taking aspirin and Plavix. This was prescribed to him after the valve replacement. He feels he is getting better but still has difficulty finding words. He does not find that the lymph nodes of the neck are any smaller or larger. PAST SURGICAL HISTORY: 1. Appendectomy. 2. Cholecystectomy. 3. Left neck dissection in [place], [place], in 2000. 4. Dr. Hazel CAMPOS, 07/12/2017 at [facility]. 5. Pacemaker placement. 6. Stent right coronary artery and angioplasty involving two vessels. 7. Vasectomy. PAST MEDICAL HISTORY: 1. Cardiovascular disease. 2. Angina. 3. COPD. 4. History of cirrhosis. 5. Osteoarthritis. 6. Head and neck cancer involving bilateral neck, base of tongue and probable single metastatic lesion to liver. ALLERGIES: BACTRIM DS. FLUDROCORTISONE resulting in swollen tongue and lips. ZITHROMAX. MEDICATIONS: 1. DuoNeb. 2. Aspirin. 3. Plavix. FAMILY HISTORY: Noncontributory. REVIEW OF SYSTEMS: CONSTITUTIONAL: Weight callahan improved; it is now stable since placement of a gastrostomy tube. HEENT: No change in vision. He did have headaches with pain in the area of the orbit. NECK: Occasional cough with phlegm in the back of the throat. GI: Mild difficulty swallowing. Now uses gastrostomy tube for help with nutrition. HEMATOLOGIC: He has had bruising. He has had nosebleeds. BREASTS: No breast masses. LUNGS: Mild exertional shortness of breath. : No dysuria or hematuria. MUSCULOSKELETAL: Some mild discomfort in the joints and neck area. SKIN: No rash. NEUROLOGIC: Notable for recent events, having difficulty finding the right words. PSYCHIATRIC: Mild anxiety. LABORATORY DATA: Hemoglobin 13, hematocrit 39, white count 7,000, platelets 181,000. 'Lytes, BUN, creatinine and liver function tests unremarkable. Physical Exam: BP 110/60, RR 18, pulse 80 frail and voice dysphonic Heent: can not visualize tumor in oral pharynx heart reg rhythm lungs clear lymphatics. small palpable adenopathy in bilateral neck and submandibular area ABD: no enlargement of liver or spleen. no masses Extrem: no edema MSK- no bone pain. Neuro: global weakness. dysphonic voice. skind- no cancer ASSESSMENT AND PLAN: The patient is a 76-year-old male. 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 He received pembrolizumab which is immunotherapy on 09/05/2017. Approximately a week later he developed pain in the area of the right orbit and difficulty finding words. His MRI of the brain is negative. It is hard for me to attribute this to the pembrolizumab; I am not sure what is taking place to cause this neurologic event. Regarding his cancer of the base of the tongue, it will take several months and several treatments to determine whether the pembrolizumab is helping. The treatment is every three weeks. I am not going to treat him until he has fully recovered from the current event. I will order a sedimentation rate which may well be elevated because of the cancer and acute problems but it would be unusual to see it markedly elevated. Presently I do not have an explanation for the neurologic event. It is too early to determine if the pembrolizumab is helping. He is not a good candidate for chemotherapy or radiation. MD ANTON Lockett/AMELIA , 08:36 PM , 08:51 AM [facility]
[2017-09-18] MEDS: CLOPIDOGREL 75 MG TAB PO SCH (09:00)
[2017-09-18] MEDS: DOCUSATE SODIUM 50 MG/SENNA 8.6 MG TAB PO SCH ×2 (10:41→21:00)
[2017-09-18] MEDS: SODIUM CHLORIDE 0.9% FLUSH 10 ML FLUSH IV FLUSH SCH ×2 (10:42→21:00)
[2017-09-18] MEDS: ASPIRIN EC 81 MG TABEC PO SCH (10:42)
--- NOTE | 2017-09-18 13:54 | HHI.PR ---
Subjective Remarks Patient says he is feeling all right today. Denies any chest pain or shortness of breath. Objective Vital Signs Date Time Temp Pulse Resp B/P (MAP) Pulse Ox O2 Delivery O2 Flow Rate FiO2 09/18/17 11:31 97.6 92 18 114/58 (76) 97 09/18/17 07:26 97.5 78 18 115/50 (71) 92 09/18/17 05:48 97.7 77 18 112/50 (70) 97 09/18/17 00:30 97.5 84 18 135/68 (90) 97 09/17/17 20:43 97.9 88 18 176/81 (112) 98 09/17/17 16:00 97.5 83 15 138/63 (88) 96 I/O 09/17/17 09/17/17 09/17/17 09/18/17 09/18/17 09/18/17 06:59 14:59 22:59 06:59 14:59 22:59 Intake Total 1334 ml 0 ml 1590 ml 0 ml Balance 1334 ml 0 ml 1590 ml 0 ml Intake Oral 0 ml 0 ml 1590 ml 0 ml IV Total 934 ml Other 400 ml # Voids 4 4 2 2 # Bowel Movements 0 1 0 Result Diagram: 09/17/17 0825 09/17/17 0825 Objective Remarks GENERAL: Patient sitting up in bed. Appears comfortable. Slurred speech SKIN: Warm and dry. HEAD: Normocephalic. EYES: No scleral icterus. No injection or drainage. NECK: Supple, trachea midline. No JVD. CARDIOVASCULAR: Regular rate and rhythm without murmurs, gallops, or rubs. RESPIRATORY: Breath sounds equal bilaterally. No accessory muscle use. GASTROINTESTINAL: Abdomen soft, non-tender, nondistended. MUSCULOSKELETAL: No cyanosis, or edema. BACK: Nontender without obvious deformity. No CVA tenderness. A/P Assessment and Plan //Altered mental status //Cystic hygroma CT scan shows subdural hygroma of the right sided frontal region. No baseline for comparison. ED provider spoke with Dr. Landeros. Neurosurgery recommendations appreciated. Neurology consult appreciated. Carotid US with multiple masses/ enlarged lymph nodes. Echo with EF 60-65%. MRI neck: Findings suspicious for mass in the glossotonsillar sulcus on the right as well as enlarged lymph node on the left. MRI brain: Cystic hygroma on the right. No acute hemorrhage; No acute intracranial abnormality. EEG without seizure activity. - follow up with neurology and neurosurgery. - Neuro checks every 4 hours. - PT. - continue medication regimen including ASA and Plavix. = Neurosurgery following. 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 MRIs as above. - Being managed by Dr. Rehman. Patient currently receiving immunotherapy. Consult placed to oncology. - continue bolus tube feeds with vital 1.5 and adjust free water as needed. Appreciate dietary recs. = Hematology consult appreciated //coronary artery disease/ Aortic stenosis Status post stent placement, pacemaker placement and TAVR. - Continue home medication regimen. - telemetry. DVT prophylaxis: SCDs Discharge Planning Will need neurosurgical and oncology clearance Mihir Vargas MD Sep 18, 2017 13:54
--- NOTE | 2017-09-18 15:25 | HHI.NSPN ---
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 He is a patient of Dr. Rehman. He also has a history of aortic stenosis, AVR via TAVR, permanent pacemaker he states about 7 months ago, heart disease with stent, PEG placement. He apparently came in with altered mental status. He seems to be back to baseline at this time. He apparently had a headache during that time and resolved with some Percocet. He was having issues trying to obtain words. 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 Currently seems to be back to baseline. Currently, he is on aspirin and Plavix. CT of the brain showed subdural hygromas,. Neurosurgical consultation was requested 09/17: no changes overnight, awaiting soft tissue of neck, also for MRI Brain today. EEG neg for seizures 09/18: MRI Brain completed, no acute infarcts. stable right subdural hygroma (Niki Bass) Labs, Micro, & Vital Signs Results Date Time Temp Pulse Resp B/P (MAP) Pulse Ox O2 Delivery O2 Flow Rate FiO2 09/18/17 11:31 97.6 92 18 114/58 (76) 97 09/18/17 07:26 97.5 78 18 115/50 (71) 92 09/18/17 05:48 97.7 77 18 112/50 (70) 97 09/18/17 00:30 97.5 84 18 135/68 (90) 97 09/17/17 20:43 97.9 88 18 176/81 (112) 98 09/17/17 16:00 97.5 83 15 138/63 (88) 96 Constitutional Vital Signs Date Time Temp Pulse Resp B/P (MAP) Pulse Ox O2 Delivery O2 Flow Rate FiO2 09/18/17 11:31 97.6 92 18 114/58 (76) 97 09/18/17 07:26 97.5 78 18 115/50 (71) 92 09/18/17 05:48 97.7 77 18 112/50 (70) 97 09/18/17 00:30 97.5 84 18 135/68 (90) 97 09/17/17 20:43 97.9 88 18 176/81 (112) 98 09/17/17 16:00 97.5 83 15 138/63 (88) 96 (Niki Bass) Review of Systems Ears, nose, mouth, throat: COMPLAINS OF: Hoarseness, Odynophagia Cardiovascular: DENIES: Chest pain Neurologic: DENIES: Headache, Localized weakness (Niki Bass) Physical Exam Mr. Irizarry is alert, awake in no acute distress. Following commands. Cranial nerve examination: pupils equal, round, and reactive to light. Extra- ocular movements are intact. Facial motor are normal and symmetrical. HEENT: normocephalic, atraumatic, nonicteric sclera Neck is decreased range of motion. mass anterior left side of neck. Motor: moving all major muscle groups of both upper and lower extremities. Sensory examination is intact to light touch in both the upper and lower extremities, symmetrically. Deep tendon reflexes are 2+ in the upper and lower extremities. I bilateral plantar flexion response. Hoffmanns sign is negative. no clonus Cerebellar examination is intact to [id number] test Respiratory: clear, no wheezing Heart: regular rate, pacemaker Skin: warm and dry (Niki Bass) Mr Matos is is alert, awake and oriented to time, place and person. Speech is fluent. Higher cognitive functions are normal. Slurred speech due to his head and neck cancer Cranial nerve examination demonstrates the pupils to be equal, round, and reactive to light. Extra-ocular movements are intact. Facial motor and sensory function are normal and symmetrical. Gross hearing is intact, bilaterally. The uvula is midline and elevates symmetrically with the soft palate. Sternocleidomastoid and trapezius muscles have normal and symmetrical strength. Other cranial nerves are intact. Neck is soft and supple. Cervical spine has a full range of motion in anterior flexion, extension, lateral bending, and rotation without pain. There is no tenderness to palpation to the spinous processes or paraspinal muscles. Muscle testing reveals normal bulk and tone overall without rigidity, spasticity , fasciculations, or atrophy. Muscle strength is 5/5 in all muscle groups of both upper extremities including deltoid, biceps, triceps, brachioradialis, wrist extension and sales recruiter. In the lower extremities, strength is 5/5 in both iliopsoas, quadriceps, hamstrings, plantar flexion, dorsiflexion, and extensor hallicus longus. Sensory examination is intact to light touch and sharp/dull discrimination in both the upper and lower extremities, symmetrically. Deep tendon reflexes are 1+ and symmetrical in the biceps, triceps, and brachioradialis, bilaterally, in the upper extremities. In the lower extremities , the patellar and Achilles are 1+, bilaterally. There is a bilateral plantar flexion response. Hoffmanns sign is negative. There is no clonus or other abnormal reflexes noted. Cerebellar examination is intact to [id number] test, rapid rhythmic alternating motion. CARDIOVASCULAR: Regular rate and rhythm without murmurs, gallops, or rubs. Pacemaker intact and palpable RESPIRATORY: Clear to auscultation. Breath sounds equal bilaterally. No wheezes , rales, or rhonchi. GASTROINTESTINAL: Abdomen soft, non-tender, nondistended. No hepato-splenomegaly , or palpable masses. No guarding. PEG is in place. MUSCULOSKELETAL: Extremities without clubbing, cyanosis, or edema. No joint tenderness, effusion, or edema noted. No calf tenderness. Negative Homans sign bilaterally. (Gilbert Landeros MD) Medications Current Medications Current Medications Medications (Trade) Dose Ordered Sig/Lyla Route PRN Reason Start Time Stop Time Status Last Admin Dose Admin Sodium Chloride (NS Flush) 2 ml UNSCH PRN IV FLUSH FLUSH AFTER USING IV ACCESS 09/15/17 14:15 Sodium Chloride (NS Flush) 2 ml BID IV FLUSH 09/15/17 21:00 09/18/17 10:42 Acetaminophen (Tylenol) 650 mg Q4H PRN PO TEMP > 100.4 09/15/17 14:15 Ondansetron HCl (Zofran Inj) 4 mg Q6H PRN IVP NAUSEA OR VOMITING 09/15/17 14:15 Naloxone HCl (Narcan Inj) 0.4 mg UNSCH PRN IV PUSH SEE LABEL COMMENTS 09/15/17 14:15 Magnesium Hydroxide (Milk Of Magnesia Liq) 30 ml Q12H PRN PO Mild constipation 09/15/17 14:15 Sennosides (Senokot) 17.2 mg Q12H PRN PO Moderate constipation 09/15/17 14:15 Bisacodyl (Dulcolax Supp) 10 mg DAILY PRN RECTAL SEVERE CONSITIPATION 09/15/17 14:15 Aspirin (Ecotrin Ec) 81 mg DAILY PO 09/16/17 09:00 09/18/17 10:42 Clopidogrel Bisulfate (Plavix) 75 mg DAILY PO 09/16/17 09:00 09/17/17 07:26 Enalaprilat (Vasotec Inj) 1.25 mg Q6H PRN IV PUSH SBP>180 or DBP>100 09/15/17 17:45 09/15/17 22:48 Water (Free Water) 200 ml Q6HR G-TUBE 09/16/17 18:00 09/18/17 12:00 Albuterol/ Ipratropium (Duoneb Neb) 1 ampule Q2HR NEB PRN NEB dyspnea 09/16/17 16:15 Senna/Docusate Sodium (Lory-Colace) 1 tab BID PO 09/16/17 21:00 09/18/17 10:41 (Niki Bass) Current Medications Current Medications Sodium Chloride (NS Flush) 2 ml UNSCH PRN IVF FLUSH AFTER USING IV ACCESS; Start 09/15/17 at 11:30; Stop 09/15/17 at 14:34; Status DC Sodium Chloride 1,000 ml @ 75 mls/hr [id number] IV Last administered on 09/17/17at 04:34; Start 09/15/17 at 14:03; Stop 09/17/17 at 16:41; Status DC Sodium Chloride (NS Flush) 2 ml UNSCH PRN IV FLUSH FLUSH AFTER USING IV ACCESS ; Start 09/15/17 at 14:15 Sodium Chloride (NS Flush) 2 ml BID IV FLUSH Last administered on 09/18/17at 21: 00; Start 09/15/17 at 21:00 Acetaminophen (Tylenol) 650 mg Q4H PRN PO TEMP > 100.4; Start 09/15/17 at 14:15 Ondansetron HCl (Zofran Inj) 4 mg Q6H PRN IVP NAUSEA OR VOMITING; Start at 14:15 Naloxone HCl (Narcan Inj) 0.4 mg UNSCH PRN IV PUSH SEE LABEL COMMENTS; Start at 14:15 Magnesium Hydroxide (Milk Of Magnesia Liq) 30 ml Q12H PRN PO Mild constipation ; Start 09/15/17 at 14:15 Sennosides (Senokot) 17.2 mg Q12H PRN PO Moderate constipation; Start 09/15/17 at 14:15 Bisacodyl (Dulcolax Supp) 10 mg DAILY PRN RECTAL SEVERE CONSITIPATION; Start at 14:15 Aspirin (Ecotrin Ec) 81 mg DAILY PO Last administered on 09/19/17at 08:47; Start 09/16/17 at 09:00 Clopidogrel Bisulfate (Plavix) 75 mg DAILY PO Last administered on 09/19/17 08: 47; Start 09/16/17 at 09:00 Enalaprilat (Vasotec Inj) 1.25 mg Q6H PRN IV PUSH SBP>180 or DBP>100 Last administered on 09/15/17at 22:48; Start 09/15/17 at 17:45 Water (Free Water) 200 ml Q6HR G-TUBE Last administered on 09/19/17at 05:52; Start 09/16/17 at 18:00 Albuterol/ Ipratropium (Duoneb Neb) 1 ampule ONCE ONCE NEB Last administered on 09/16/17at 16:15; Start 09/16/17 at 16:15; Stop 09/16/17 at 16:16; Status DC Albuterol/ Ipratropium (Duoneb Neb) 1 ampule Q2HR NEB PRN NEB dyspnea; Start at 16:15 Senna/Docusate Sodium (Lory-Colace) 1 tab BID PO Last administered on 09/19/17at 08:47; Start 09/16/17 at 21:00 Oxycodone/ Acetaminophen (Percocet 5-325 Mg) 1 tab ONCE ONCE PO Last administered on 09/17/17at 02:35; Start 09/17/17 at 02:30; Stop 09/17/17 at 02:31; Status DC Gadodiamide (Omniscan Pf Inj) 12 ml STK-MED ONCE IV PUSH Last administered on at 14:00; Start 09/17/17 at 14:00; Stop 09/17/17 at 15:00; Status DC (Gilbert Landeros MD) Medical Decision Making MDM Remarks 76 y/o male presents for AMS subdural hygroma, stable on MRI Brain, negative for acute intracranial hemorrhage or ischemia EEG neg for seizures neck mass - history of throat CA, MRI soft tissue of neck: mass in the glossotonsillar sulcus on the right as well as enlarged lymph node on the left. (Niki Bass) Plan Plan Remarks nonsurgical management of subdural hygroma oncology consultation (Niki Bass) Attending Statement Merry VTE Risk Assessment: Mod/High Risk (score >= 2) Antoinerini Risk Assessment Model Point Value = 1 Point Value = 2 Point Value = 3 Point Value = 5 Age 41-60 Minor surgery BMI > 25 kg/m2 Swollen legs Varicose veins or History of unexplained or recurrent spontaneous Oral contraceptives or hormone replacement Sepsis (< 1 month) Serious lung disease, including pneumonia (< 1 month) Abnormal pulmonary function Acute myocardial infarction Congestive heart failure (< 1 month) History of inflammatory bowel disease Medical patient at bed rest Age 61-74 Arthroscopic surgery Major open surgery (> 45 min) Laparoscopic surgery (> 45 min) Malignancy Confined to bed (> 72 hours) Immobilizing plaster cast Central venous access Age >= 75 History of VTE Family history of VTE Factor V Leiden Prothrombin [id number] Lupus anticoagulant Anticardiolipin antibodies Elevated serum homocysteine Heparin-induced thrombocytopenia Other congenital or acquired thrombophilia Stroke (< 1 month) Elective arthroplasty Hip, pelvis, or leg fracture Acute spinal cord injury (< 1 month) Prophylaxis Regimen Total Risk Factor Score Risk Level Prophylaxis Regimen 0-1 Low Early ambulation 2 Moderate Order ONE of the following: *Sequential Compression Device (SCD) *Heparin 5000 units SQ BID 3-4 Higher Order ONE of the following medications: *Heparin 5000 units SQ TID *Enoxaparin/Lovenox 40 mg SQ daily (WT < 150 kg, CrCl > 30 mL/min) *Enoxaparin/Lovenox 30 mg SQ daily (WT < 150 kg, CrCl > 10-29 mL/min) *Enoxaparin/Lovenox 30 mg SQ BID (WT < 150 kg, CrCl > 30 mL/min) AND/OR *Sequential Compression Device (SCD) 5 or more Highest Order ONE of the following medications: *Heparin 5000 units SQ TID (Preferred with Epidurals) *Enoxaparin/Lovenox 40 mg SQ daily (WT < 150 kg, CrCl > 30 mL/min) *Enoxaparin/Lovenox 30 mg SQ daily (WT < 150 kg, CrCl > 10-29 mL/min) *Enoxaparin/Lovenox 30 mg SQ BID (WT < 150 kg, CrCl > 30 mL/min) AND *Sequential Compression Device (SCD) I reviewed his MRI of the brain and the neck No evidence of cerebellar infarction Mass on his neck suggestive of malignancy Frontal hygroma continue neuro checks in a serial fashion. Non surgical management Evaluated by neurology for altered mental status/encephalopathy. this is not related to the hygroma.. 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 He received pembrolizumab which is immunotherapy on 09/05/2017. Will defer to oncologist Daily physical therapy recommend electroencephalogram, echocardiogram, and MRI with and without contrast, given his cancer history if his pacemaker is MRI compatible Pulmonary. aggressive pulmonary toilette, nasotracheal suction, and breathing treatments with nebulizers. Head and neck cancer with metastases to lymph nodes and possible liver. Regarding the findings on his carotid ultrasound of the lymph nodes, I would defer that to oncology, managed by Dr. Rehman. currently receiving chemo. Daily Speech therapy and OT Headache. Resolved after giving a dose of Percocet Coronary artery disease status post stent placement, pacemaker placement, aortic stenosis s/p TAVR -Continue with home medication. History of syncopal episodes -This has been worked up numerous times in the past. Thought to be related to hypotensive episode. At the moment patient has mild hypertension. Continue monitor, adjust medication as needed. s/p PEG -patient is cachetic/malnouished. Daughter is feeding patient with a pured diet. Consult dietitian. Renal. monitor closely urine output, BUN and creatinine Endocrine.Monitor serial Acu checks and SSI as needed in detail ID monitor for signs of infection Protonix for stress ulcer prophylaxis Rasheed hose and SCD's for DVT prophylaxis The exam, history, and the medical decision-making described in the above note were completed with the assistance of the mid-level provider. I reviewed and agree with the findings presented. I attest that I had a [id number] encounter with the patient on the same day, and personally performed and documented my assessment and findings in the medical record. (Gilbert Landeros MD) Niki Bass Sep 18, 2017 15:25 Gilbert Landeros MD Sep 19, 2017 16:09
[2017-09-19 00:04] VITALS: BP 118/68; PULSE 78; RESP 17; TEMP 96.7; O2SAT 98
[2017-09-19 00:16] VITALS: PULSE 75
[2017-09-19 04:05] VITALS: BP 121/61; PULSE 84; RESP 17; TEMP 97.2; O2SAT 98
[2017-09-19 04:09] VITALS: PULSE 74
[2017-09-19] MEDS: FREE WATER G-TUBE SCH ×3 (05:52→11:03)
[2017-09-19 07:18] VITALS: BP 111/52; PULSE 90; RESP 18; TEMP 97.4; O2SAT 94
[2017-09-19] MEDS: CLOPIDOGREL 75 MG TAB PO SCH (08:47)
[2017-09-19] MEDS: ASPIRIN EC 81 MG TABEC PO SCH (08:47)
[2017-09-19] MEDS: SODIUM CHLORIDE 0.9% FLUSH 10 ML FLUSH IV FLUSH SCH (08:47)
[2017-09-19] MEDS: DOCUSATE SODIUM 50 MG/SENNA 8.6 MG TAB PO SCH (08:47)
--- NOTE | 2017-09-19 09:53 | HHI.FF ---
Face to Face Verification Diagnosis: (1) Difficulty with speech (2) Subdural hygroma Physical Therapy Order: Evaluate and Treat Speech Therapy Order: To Improve: Speech and communication skills Home Health Nursing Order: Nursing assessment with vital signs Licensed Guide Order: To Provide: Long range planning I have seen patient Mynor Gonzalez on 09/19/17. My clinical findings support the need for the requested home health care services because: Limited ability to care for self I certify that my clinical findings support that this patient is homebound because: Unsafe to leave home unassisted Mihir Vargas MD Sep 19, 2017 09:53
[2017-09-19 11:56] VITALS: BP 111/59; PULSE 80; RESP 18; TEMP 97.1; O2SAT 97
--- NOTE | 2017-09-19 14:15 | HHI.NSPN ---
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 He is a patient of Dr. Rehman. He also has a history of aortic stenosis, AVR via TAVR, permanent pacemaker he states about 7 months ago, heart disease with stent, PEG placement. He apparently came in with altered mental status. He seems to be back to baseline at this time. He apparently had a headache during that time and resolved with some Percocet. He was having issues trying to obtain words. He stated that he could not remember the name or the word for his phone long winder tender. Currently seems to be back to baseline. Currently, he is on aspirin and Plavix. CT of the brain showed subdural hygromas,. Neurosurgical consultation was requested 09/17: no changes overnight, awaiting soft tissue of neck, also for MRI Brain today. EEG neg for seizures 09/18: MRI Brain completed, no acute infarcts. stable right subdural hygroma 09/19: no neuro changes,requesting to go home (Niki Bass) Labs, Micro, & Vital Signs Results Date Time Temp Pulse Resp B/P (MAP) Pulse Ox O2 Delivery O2 Flow Rate FiO2 09/19/17 11:56 97.1 80 18 111/59 (76) 97 09/19/17 07:18 97.4 90 18 111/52 (71) 94 09/19/17 04:09 74 09/19/17 04:05 97.2 84 17 121/61 (81) 98 09/19/17 00:16 75 09/19/17 00:04 96.7 78 17 118/68 (85) 98 09/18/17 20:59 84 09/18/17 20:45 97.1 88 17 130/66 (87) 99 09/18/17 15:37 97.8 95 18 100/57 (71) 95 Constitutional Vital Signs Date Time Temp Pulse Resp B/P (MAP) Pulse Ox O2 Delivery O2 Flow Rate FiO2 09/19/17 11:56 97.1 80 18 111/59 (76) 97 09/19/17 07:18 97.4 90 18 111/52 (71) 94 09/19/17 04:09 74 09/19/17 04:05 97.2 84 17 121/61 (81) 98 09/19/17 00:16 75 09/19/17 00:04 96.7 78 17 118/68 (85) 98 09/18/17 20:59 84 09/18/17 20:45 97.1 88 17 130/66 (87) 99 09/18/17 15:37 97.8 95 18 100/57 (71) 95 (Niki Bass) Review of Systems Constitutional: DENIES: Fever Neurologic: DENIES: Headache, Localized weakness (Niki Bass) Physical Exam Mr. Irizarry is alert, awake in no acute distress. Following commands. Cranial nerve examination: pupils equal, round, and reactive to light. Extra- ocular movements are intact. Facial motor are normal and symmetrical. HEENT: normocephalic, atraumatic, nonicteric sclera Neck is decreased range of motion. mass anterior left side of neck. Motor: moving all major muscle groups of both upper and lower extremities. Cerebellar examination is intact to [id number] test Respiratory: clear, no wheezing Heart: regular rate, pacemaker Skin: warm and dry Gait: ambulating without assistance (Niki Bass) is alert, awake and oriented to time, place and person. Speech is fluent. Higher cognitive functions are normal. Slurred speech due to his head and neck cancer Cranial nerve examination demonstrates the pupils to be equal, round, and reactive to light. Extra-ocular movements are intact. Facial motor and sensory function are normal and symmetrical. Gross hearing is intact, bilaterally. The uvula is midline and elevates symmetrically with the soft palate. Sternocleidomastoid and trapezius muscles have normal and symmetrical strength. Other cranial nerves are intact. Neck is soft and supple. Cervical spine has a full range of motion in anterior flexion, extension, lateral bending, and rotation without pain. There is no tenderness to palpation to the spinous processes or paraspinal muscles. Muscle testing reveals normal bulk and tone overall without rigidity, spasticity , fasciculations, or atrophy. Muscle strength is 5/5 in all muscle groups of both upper extremities including deltoid, biceps, triceps, brachioradialis, wrist extension and rehabilitation nurse. In the lower extremities, strength is 5/5 in both iliopsoas, quadriceps, hamstrings, plantar flexion, dorsiflexion, and extensor hallicus longus. Sensory examination is intact to light touch and sharp/dull discrimination in both the upper and lower extremities, symmetrically. Deep tendon reflexes are 1+ and symmetrical in the biceps, triceps, and brachioradialis, bilaterally, in the upper extremities. In the lower extremities , the patellar and Achilles are 1+, bilaterally. There is a bilateral plantar flexion response. Hoffmanns sign is negative. There is no clonus or other abnormal reflexes noted. Cerebellar examination is intact to [id number]-[id number] test, rapid rhythmic alternating motion. CARDIOVASCULAR: Regular rate and rhythm without murmurs, gallops, or rubs. Pacemaker intact and palpable RESPIRATORY: Clear to auscultation. Breath sounds equal bilaterally. No wheezes , rales, or rhonchi. GASTROINTESTINAL: Abdomen soft, non-tender, nondistended. No hepato-splenomegaly , or palpable masses. No guarding. PEG is in place. MUSCULOSKELETAL: Extremities without clubbing, cyanosis, or edema. No joint tenderness, effusion, or edema noted. No calf tenderness. Negative Homans sign bilaterally. (Gilbert Landeros MD) Medications Current Medications Current Medications Medications (Trade) Dose Ordered Sig/Lyla Route PRN Reason Start Time Stop Time Status Last Admin Dose Admin Sodium Chloride (NS Flush) 2 ml UNSCH PRN IV FLUSH FLUSH AFTER USING IV ACCESS 09/15/17 14:15 Sodium Chloride (NS Flush) 2 ml BID IV FLUSH 09/15/17 21:00 09/18/17 21:00 Acetaminophen (Tylenol) 650 mg Q4H PRN PO TEMP > 100.4 09/15/17 14:15 Ondansetron HCl (Zofran Inj) 4 mg Q6H PRN IVP NAUSEA OR VOMITING 09/15/17 14:15 Naloxone HCl (Narcan Inj) 0.4 mg UNSCH PRN IV PUSH SEE LABEL COMMENTS 09/15/17 14:15 Magnesium Hydroxide (Milk Of Magnesia Liq) 30 ml Q12H PRN PO Mild constipation 09/15/17 14:15 Sennosides (Senokot) 17.2 mg Q12H PRN PO Moderate constipation 09/15/17 14:15 Bisacodyl (Dulcolax Supp) 10 mg DAILY PRN RECTAL SEVERE CONSITIPATION 09/15/17 14:15 Aspirin (Ecotrin Ec) 81 mg DAILY PO 09/16/17 09:00 09/19/17 08:47 Clopidogrel Bisulfate (Plavix) 75 mg DAILY PO 09/16/17 09:00 09/19/17 08:47 Enalaprilat (Vasotec Inj) 1.25 mg Q6H PRN IV PUSH SBP>180 or DBP>100 09/15/17 17:45 09/15/17 22:48 Water (Free Water) 200 ml Q6HR G-TUBE 09/16/17 18:00 09/19/17 05:52 Albuterol/ Ipratropium (Duoneb Neb) 1 ampule Q2HR NEB PRN NEB dyspnea 09/16/17 16:15 Senna/Docusate Sodium (Lory-Colace) 1 tab BID PO 09/16/17 21:00 09/19/17 08:47 (Niki Bass) Current Medications Current Medications Sodium Chloride (NS Flush) 2 ml UNSCH PRN IVF FLUSH AFTER USING IV ACCESS; Start 09/15/17 at 11:30; Stop 09/15/17 at 14:34; Status DC Sodium Chloride 1,000 ml @ 75 mls/hr [id number] IV Last administered on 09/17/17at 04:34; Start 09/15/17 at 14:03; Stop 09/17/17 at 16:41; Status DC Sodium Chloride (NS Flush) 2 ml UNSCH PRN IV FLUSH FLUSH AFTER USING IV ACCESS ; Start 09/15/17 at 14:15; Stop 09/19/17 at 16:07; Status DC Sodium Chloride (NS Flush) 2 ml BID IV FLUSH Last administered on 09/18/17at 21: 00; Start 09/15/17 at 21:00; Stop 09/19/17 at 16:07; Status DC Acetaminophen (Tylenol) 650 mg Q4H PRN PO TEMP > 100.4; Start 09/15/17 at 14:15 ; Stop 09/19/17 at 16:07; Status DC Ondansetron HCl (Zofran Inj) 4 mg Q6H PRN IVP NAUSEA OR VOMITING; Start at 14:15; Stop 09/19/17 at 16:07; Status DC Naloxone HCl (Narcan Inj) 0.4 mg UNSCH PRN IV PUSH SEE LABEL COMMENTS; Start at 14:15; Stop 09/19/17 at 16:07; Status DC Magnesium Hydroxide (Milk Of Magnesia Liq) 30 ml Q12H PRN PO Mild constipation ; Start 09/15/17 at 14:15; Stop 09/19/17 at 16:07; Status DC Sennosides (Senokot) 17.2 mg Q12H PRN PO Moderate constipation; Start 09/15/17 at 14:15; Stop 09/19/17 at 16:07; Status DC Bisacodyl (Dulcolax Supp) 10 mg DAILY PRN RECTAL SEVERE CONSITIPATION; Start at 14:15; Stop 09/19/17 at 16:07; Status DC Aspirin (Ecotrin Ec) 81 mg DAILY PO Last administered on 09/19/17at 08:47; Start 09/16/17 at 09:00; Stop 09/19/17 at 16:07; Status DC Clopidogrel Bisulfate (Plavix) 75 mg DAILY PO Last administered on 09/19/17at 08: 47; Start 09/16/17 at 09:00; Stop 09/19/17 at 16:07; Status DC Enalaprilat (Vasotec Inj) 1.25 mg Q6H PRN IV PUSH SBP>180 or DBP>100 Last administered on 09/15/17at 22:48; Start 09/15/17 at 17:45; Stop 09/19/17 at 16:07; Status DC Water (Free Water) 200 ml Q6HR G-TUBE Last administered on 09/19/17at 05:52; Start 09/16/17 at 18:00; Stop 09/19/17 at 16:07; Status DC Albuterol/ Ipratropium (Duoneb Neb) 1 ampule ONCE ONCE NEB Last administered on 09/16/17at 16:15; Start 09/16/17 at 16:15; Stop 09/16/17 at 16:16; Status DC Albuterol/ Ipratropium (Duoneb Neb) 1 ampule Q2HR NEB PRN NEB dyspnea; Start at 16:15; Stop 09/19/17 at 16:07; Status DC Senna/Docusate Sodium (Lory-Colace) 1 tab BID PO Last administered on 09/19/17at 08:47; Start 09/16/17 at 21:00; Stop 09/19/17 at 16:07; Status DC Oxycodone/ Acetaminophen (Percocet 5-325 Mg) 1 tab ONCE ONCE PO Last administered on 09/17/17at 02:35; Start 09/17/17 at 02:30; Stop 09/17/17 at 02:31; Status DC Gadodiamide (Omniscan Pf Inj) 12 ml STK-MED ONCE IV PUSH Last administered on at 14:00; Start 09/17/17 at 14:00; Stop 09/17/17 at 15:00; Status DC (Gilbert Landeros MD) Medical Decision Making MDM Remarks 76 y/o male presents for AMS subdural hygroma, stable on MRI Brain, negative for acute intracranial hemorrhage or ischemia EEG neg for seizures neck mass - history of throat CA, MRI soft tissue of neck: mass in the glossotonsillar sulcus on the right as well as enlarged lymph node on the left. (Niki Bass) Plan Plan Remarks nonsurgical management of subdural hygroma oncology consultation (Niki Bass) Attending Statement MRI of the brain did not show stroke CT neck showed a mass. 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 He received pembrolizumab which is immunotherapy on 09/05/2017. Will defer to oncologist Frontal hygroma neuro checks in a serial fashion. Non surgical management Consul;t neurology for altered mental status/encephalopathy. this is not related to the hygroma.. Change in mental status with word finding difficulties , may have been a transient ischemic attack. physical therapy evaluation recommend electroencephalogram, echocardiogram, and MRI with and without contrast, given his cancer history if his pacemaker is MRI compatible Pulmonary. aggressive pulmonary toilette, nasotracheal suction, and breathing treatments with nebulizers. Head and neck cancer with metastases to lymph nodes and possible liver. Regarding the findings on his carotid ultrasound of the lymph nodes, I would defer that to oncology, managed by Dr. Rehman. currently receiving chemo. Daily Speech therapy and OT Headache. Resolved after giving a dose of Percocet Coronary artery disease status post stent placement, pacemaker placement, aortic stenosis s/p TAVR -Continue with home medication. History of syncopal episodes -This has been worked up numerous times in the past. Thought to be related to hypotensive episode. At the moment patient has mild hypertension. Continue monitor, adjust medication as needed. s/p PEG -patient is cachetic/malnouished. Daughter is feeding patient with a pured diet. Consult dietitian. Renal. monitor closely urine output, BUN and creatinine Endocrine.Monitor serial Acu checks and SSI as needed in detail ID monitor for signs of infection Protonix for stress ulcer prophylaxis Rasheed hose and SCD's for DVT prophylaxis The exam, history, and the medical decision-making described in the above note were completed with the assistance of the mid-level provider. I reviewed and agree with the findings presented. I attest that I had a [id number] encounter with the patient on the same day, and personally performed and documented my assessment and findings in the medical record. (Gilbert Landeros MD) Niki Bass Sep 19, 2017 14:15 Gilbert Landeros MD Sep 19, 2017 16:09
--- NOTE | 2017-09-19 21:28 | HHI.PR ---
Subjective Remarks patient seen this morning around 9 AM. Says he is feeling all right. Denies any chest pain or shortness of breath. Continues on tube feeds. He says he feels like going home. Objective Vital Signs Date Time Temp Pulse Resp B/P (MAP) Pulse Ox O2 Delivery O2 Flow Rate FiO2 09/19/17 11:56 97.1 80 18 111/59 (76) 97 09/19/17 07:18 97.4 90 18 111/52 (71) 94 09/19/17 04:09 74 09/19/17 04:05 97.2 84 17 121/61 (81) 98 09/19/17 00:16 75 09/19/17 00:04 96.7 78 17 118/68 (85) 98 I/O 09/18/17 09/18/17 09/18/17 09/19/17 09/19/17 09/19/17 07:00 15:00 23:00 07:00 15:00 23:00 Intake Total 0 ml 300 ml 400 ml Balance 0 ml 300 ml 400 ml Intake Oral 0 ml 0 ml 0 ml Tube Feeding 300 ml Other 400 ml # Voids 2 5 2 3 3 # Bowel Movements 0 0 0 0 0 Result Diagram: 09/17/1725 09/17/17 0825 Objective Remarks GENERAL: Patient sitting up in bed. Appears comfortable. Slurred speech. Appropriate conversation however SKIN: Warm and dry. HEAD: Normocephalic. EYES: No scleral icterus. No injection or drainage. NECK: Supple, trachea midline. No JVD. CARDIOVASCULAR: Regular rate and rhythm without murmurs, gallops, or rubs. RESPIRATORY: Breath sounds equal bilaterally. No accessory muscle use. GASTROINTESTINAL: Abdomen soft, non-tender, nondistended. MUSCULOSKELETAL: No cyanosis, or edema. BACK: Nontender without obvious deformity. No CVA tenderness. A/P Assessment and Plan //Altered mental status //Cystic hygroma CT scan shows subdural hygroma of the right sided frontal region. No baseline for comparison. ED provider spoke with Dr. Landeros. Neurosurgery recommendations appreciated. Neurology consult appreciated. Carotid US with multiple masses/ enlarged lymph nodes. Echo with EF 60-65%. MRI neck: Findings suspicious for mass in the glossotonsillar sulcus on the right as well as enlarged lymph node on the left. MRI brain: Cystic hygroma on the right. No acute hemorrhage; No acute intracranial abnormality. EEG without seizure activity. - follow up with neurology and neurosurgery. - Neuro checks every 4 hours. - PT. - continue medication regimen including ASA and Plavix. = Neurosurgery following. Appreciate assistance =hygroma is stable. //Head and neck cancer With metastases to lymph nodes and possibly liver. MRIs as above. - Being managed by Dr. Rehman. Patient currently receiving immunotherapy. Consult placed to oncology. - continue bolus tube feeds with vital 1.5 and adjust free water as needed. Appreciate dietary recs. = Hematology consult appreciated =discussed with hematology who is cleared for discharge. Follow with Dr. Allan as outpatient. //coronary artery disease/ Aortic stenosis Status post stent placement, pacemaker placement and TAVR. - Continue home medication regimen. - telemetry. DVT prophylaxis: SCDs Discharge Planning patient cleared by oncology. Hygroma is stable Follow up oncology as outpatient for possible chemotherapy. Mihir Vargas MD Sep 19, 2017 21:28
--- NOTE | 2017-09-19 21:30 | HHI.DS ---
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 Brief History - From Admission This is a 76-year-old male with history of squamous cell carcinoma of the head and neck since 2000 with metastases to lymph nodes and possible liver being managed by Dr. Rehman, aortic stenosis status post aortic valve replacement done by TAVR, status post pacemaker placement, coronary disease status post stent placement, status post PEG placement who presented with altered mental status. Patient's daughters and future son-in-law are at the bedside during the interview. Patient had no concerns. He denied being confused. He is AAO 4. Per patient's daughter yesterday patient developed a headache that resolved with Percocet. She stated that he later developed some confusion where she felt like he was trying to find his words. Denies any focal neurological deficits. Denies any blurry vision or headaches at the moment. Due to patient' s confusion daughter brought patient into the ER. During my interview with the patient he was not confused. I asked daughter if she he was still confused she stated that his confusion has resolved since being in the emergency department. Patient does speak with a little slurred speech because of head and neck cancer but this is his baseline. Patient also has a PEG and he was put on Jevity but per patient's daughter he is allergic to soy so she pures food and feed him through the PEG. Patient is on aspirin and Plavix. All other review of system reviewed and negative. CBC/BMP: 09/17/17 0825 09/17/17 0825 Significant Findings Laboratory Tests Test 09/17/17 08:25 09/18/17 07:31 Red Blood Count 4.42 MIL/MM3 (4.50-5.90) Calcium Level 8.4 MG/DL (8.5-10.1) Erythrocyte Sedimentation Rate 25 mm/hr (0-20) Imaging Last Impressions Soft Tissue MRI 09/17/17 0000 Signed Impressions: Service Date/Time: Sunday, September 17, 2017 13:38 - CONCLUSION: 1. Findings suspicious for mass in the glossotonsillar sulcus on the right as well as enlarged lymph node on the left. 2. Direct visualization is recommended. 3. PET/CT scan is recommended to further evaluation if clinically indicated. Jose Rodriguez MD Brain MRI 09/17/17 0000 Signed Impressions: Service Date/Time: Sunday, September 17, 2017 13:38 - CONCLUSION: 1. Cystic hygroma on the right. No acute hemorrhage. 2. No acute intracranial abnormality. Po Ascencio Jr., MD Head CT 09/15/17 1126 Signed Impressions: Service Date/Time: Friday, September 15, 2017 11:59 - CONCLUSION: Suspected subdural hygroma on the right side of the frontal region. No acute process is identified. Toribio Enamorado MD Chest X-Ray 09/15/17 1126 Signed Impressions: Service Date/Time: Friday, September 15, 2017 12:11 - CONCLUSION: Normal examination. Left subclavian bipolar pacer Toribio Enamorado MD Carotid Artery Ultrasound 09/15/17 0000 Signed Impressions: Service Date/Time: Friday, September 15, 2017 19:11 - CONCLUSION: 1. No evidence for hemodynamically significant stenosis. 2. In the right neck a 2.2 x 1 x 1.7 cm solid hypoechoic mass is present with blood flow anterior to the carotid vasculature. There is also a 3.5 x 2.1 x 4 cm mass in the right neck anterior to the bifurcation. Additional abnormal masses are seen felt to represent abnormal lymph nodes including right submandibular region up to 1.2 cm. In the left neck a 2.1 cm abnormal node is seen. Neoplastic processes such as metastatic disease or lymphoma should be entertained. Dedicated cervical imaging with CT neck with contrast suggested. Arik Cadena MD PE at Discharge GENERAL: This is a cachectic male in no acute distress. SKIN: No rashes, ecchymoses or lesions. Cool and dry. HEAD: Atraumatic. Normocephalic. No temporal or scalp tenderness. EYES: Pupils equal round and reactive. Extraocular motions intact. No scleral icterus. No injection or drainage. ENT: Nose without bleeding, purulent drainage or septal hematoma. Throat without erythema, tonsillar hypertrophy or exudate. Uvula midline. Airway patent. Tongue is swollen. NECK: Trachea midline. Tender to palpation along the right side of the neck. CARDIOVASCULAR: Regular rate and rhythm without murmurs, gallops, or rubs. RESPIRATORY: Scattered rhonchi, slight wheezing. GASTROINTESTINAL: Abdomen soft, non-tender, nondistended. No hepato-splenomegaly , or palpable masses. No guarding. PEG is in place. MUSCULOSKELETAL: Extremities without clubbing, cyanosis, or edema. No joint tenderness, effusion, or edema noted. NEUROLOGICAL: AAO X3. Answers questions appropriately. Cranial nerves II through XII intact. Motor and sensory grossly within normal limits. Five out of 5 muscle strength in all muscle groups. Patient does have a slight slurred speech secondary to swollen tongue. PSYCH: Mood and affect appropriate. Hospital Course CT on admission shows subdural hygroma on the right side of the frontal region as above. Neurosurgery was consulted and followed during admission. Follow-up MRI shows no acute hemorrhage, and stable hygroma. Ultrasound carotids without stenosis, however does show solid hypoechoic mass as above. This is confirmed on neck CT as above. Echocardiogram with normal ejection fraction, no source of thrombus identified. Hematology was consulted, recommends follow-up as outpatient. Patient continues to be alert and oriented 4, however slurred speech is significant.Patient indicates that he would not like to undergo chemotherapy, however will follow-up with oncology as outpatient. From pulmonary summary her most recent progress note, please see below. //Altered mental status //Cystic hygroma CT scan shows subdural hygroma of the right sided frontal region. No baseline for comparison. ED provider spoke with Dr. Landeros. Neurosurgery recommendations appreciated. Neurology consult appreciated. Carotid US with multiple masses/ enlarged lymph nodes. Echo with EF 60-65%. MRI neck: Findings suspicious for mass in the glossotonsillar sulcus on the right as well as enlarged lymph node on the left. MRI brain: Cystic hygroma on the right. No acute hemorrhage; No acute intracranial abnormality. EEG without seizure activity. - follow up with neurology and neurosurgery. - Neuro checks every 4 hours. - PT. - continue medication regimen including ASA and Plavix. = Neurosurgery following. Appreciate assistance =hygroma is stable. //Head and neck cancer With metastases to lymph nodes and possibly liver. MRIs as above. - Being managed by Dr. Rehman. Patient currently receiving immunotherapy. Consult placed to oncology. - continue bolus tube feeds with vital 1.5 and adjust free water as needed. Appreciate dietary recs. = Hematology consult appreciated =discussed with hematology who is cleared for discharge. Follow with Dr. Allan as outpatient. //coronary artery disease/ Aortic stenosis Status post stent placement, pacemaker placement and TAVR. - Continue home medication regimen. - telemetry. DVT prophylaxis: SCDs Pt Condition on Discharge: Good Discharge Disposition: Disch w/ Home Health Serv Discharge Time: > 30 minutes Discharge Instructions DIET: Follow Instructions for: On Tube Feeding Activities you can perform: Regular-No Restrictions Follow up Referrals: Neurology - 1 Week with Shonda Montes MD Oncology/Hematology - 1 Week with Lazaro Rehman MD PCP Follow-up - 1 Week with Missy Mcelroy MD Continued Medications: Aspirin DR (Aspirin Adult Low Strength) 81 Mg Tabdr 81 MG PO DAILY, TAB Clopidogrel (Plavix) 75 Mg Tab 75 MG PO DAILY for Blood Clot Prevention, #30 TAB 0 Refills Mihir Vargas MD Sep 19, 2017 21:30
== END 2017-09-19 16:06 | disposition home health service (06) | DRG 71 ==
LOC: NEPE 10:52 → NEDA 13:38 → NEPHCDU 15:33 → N06B 22:27
PROVIDERS: ADMIT Hospitalist; ATTEND Hospitalist
DX: G93.40 Encephalopathy, unspecified (principal); R64 Cachexia; E46 Unspecified protein-calorie malnutrition; C78.7 Secondary malignant neoplasm of liver and intrahepatic bile duct; C77.0 Secondary and unspecified malignant neoplasm of lymph nodes of head, face and neck; K70.30 Alcoholic cirrhosis of liver without ascites; J44.9 Chronic obstructive pulmonary disease, unspecified; Z68.1 Body mass index [BMI] 19.9 or less, adult; D18.1 Lymphangioma, any site; C32.2 Malignant neoplasm of subglottis; I25.10 Atherosclerotic heart disease of native coronary artery without angina pectoris; I10 Essential (primary) hypertension; C01 Malignant neoplasm of base of tongue; M19.90 Unspecified osteoarthritis, unspecified site; F10.21 Alcohol dependence, in remission; Z86.73 Personal history of transient ischemic attack (TIA), and cerebral infarction without residual deficits; Z87.891 Personal history of nicotine dependence; Z93.1 Gastrostomy status; Z95.0 Presence of cardiac pacemaker; Z95.2 Presence of prosthetic heart valve; Z95.5 Presence of coronary angioplasty implant and graft
CPT/HCPCS: 70450; 70543; 70551; 71045; 80048; 80053; 81001; 82550; 83735; 84484; 85025; 85027; 85610; 85652; 85730; 93005; 93306; 93880; 94664; 95819; A9579